=== PATIENT | male | born 1950 | race Caucasian/White ===

== ENCOUNTER 2018-02-21 12:17 | Inpatient (IN) | payer BC, MEDICARE ==
[~2018-02-21] VITALS: Ht 190.5 cm; Wt 102.1 kg
[~2018-02-21 12:17] MED LIST: AMLO10TA4 PO; ASPI325T8 PO; Butalb/Acetaminophen/Caffeine PO; CIPR500T94 PO; LABE100T28 PO; LEVO175T2 PO; TAMS0.4C97 PO; coumadin
[2018-02-21] MEDS ORDERED: IV NORMAL SALINE 1000ML BAG 1,000 ML IV SCH (12:46)
--- NOTE | 2018-02-21 12:53 | PHYS DOC ---
Past Medical History Past Medical History: Hypertension, Renal Failure, Other Additional Past Medical Histor: PE, BROKEN RIBS Past Surgical History: TURP, Other Additional Past Surgical Histo: Hernia repair, bladder stone removal Alcohol Use: Occasionally Drug Use: None Adult General Chief Complaint Chief Complaint: ABDOMINAL PAIN HPI HPI Patient is a 68 old male who presents to the emergency department for evaluation. He states that this morning he awakened, with some mild right flank pain, which has gradually been worsening, and radiating towards his right groin. The pain does feel somewhat similar to prior episodes of kidney stones that he has had. He has not had any hematuria. He does have a chronic history of an atonic bladder, which she self catheterizes, as he has been doing for years. He also reports that a few weeks ago he fell off of a horse, and broke some ribs on his right side, but this pain does not feel the same. He has not had any fevers or chills, chest, shortness of breath, nausea, vomiting. He denies any pleuritic pain. There are no alleviating or exacerbating factors to the patient's symptoms. Review of Systems Review of Systems Constitutional: Denies fever or chills [] Eyes: Denies change in visual acuity, redness, or eye pain [] HENT: Denies nasal congestion or sore throat [] Respiratory: Denies cough or shortness of breath [] Cardiovascular:The patient denies any shortness of breath, chest pain, palpitations, or orthopnea[] GI: Denies abdominal pain, nausea, vomiting, bloody stools or diarrhea [] : Denies dysuria or hematuria [] Musculoskeletal: Denies back pain or joint pain [] Integument: Denies rash or skin lesions [] Neurologic: Denies headache, focal weakness or sensory changes [] Endocrine: Denies polyuria or polydipsia [] All other systems were reviewed and found to be within normal limits, except as documented in this note. Current Medications Current Medications Current Medications Medications (Trade) Dose Ordered Sig/Katty Start Time Stop Time Status Last Admin Dose Admin Ceftriaxone Sodium (Rocephin) 1 gm 1X ONCE 02/21/18 14:15 02/21/18 14:16 DC 02/21/18 14:13 1 GM Ketorolac Tromethamine (Toradol 30mg Vial) 30 mg 1X ONCE 02/21/18 13:00 12/6/18 13:01 DC 02/21/18 13:21 30 MG Ondansetron HCl (Zofran) 4 mg 1X ONCE 02/21/18 13:30 02/21/18 13:31 DC 02/21/18 13:20 4 MG Sodium Chloride 1,000 ml @ 1,000 mls/hr Q1H 02/21/18 12:46 02/21/18 13:45 DC 02/21/18 13:20 1,000 MLS/HR Allergies Allergies Allergies Coded Allergies Type Severity Reaction Last Updated Verified I S O L A T I O N *CONTACT* Allergy Unknown 07/19/15 Yes No Known Medication Allergies Allergy Unknown 07/19/15 Yes Physical Exam Physical Exam PHYSICAL EXAM: CONSTITUTIONAL: Well developed, well nourished HEAD: normocephalic, atraumatic EENT: PERRL, EOMI. Conjunctivae normal color, sclerae non-icteric; moist mucous membranes. NECK: Supple, non-tender; no meningismus. LUNGS: Lungs CTA, breathing even and unlabored. Normal air movement. HEART: Regular rate and rhythm, no murmur CHEST: No deformity; non-tender ABDOMEN: The abdomen is soft, and non-tender, no masses or bruits. There is no reproducible tenderness to palpation. The right upper quadrant is nontender. EXTREM: Normal ROM; no deformity, no calf tenderness. Normal pulses palpable in all extremities. There is no pedal edema. SKIN: No rash; no diaphoresis NEURO: Alert; normal speech and cognition; CN's grossly intact; strength grossly intact without focal deficit. BACK: No reproducible CVA TTP.There is no bony tenderness to palpation of the thoracic or lumbar spine. Current Patient Data Vital Signs Vital Signs Date Time Temp Pulse Resp B/P (MAP) Pulse Ox O2 Delivery O2 Flow Rate FiO2 02/21/18 14:15 57 18 150/80 (103) 94 Room Air 02/21/18 12:33 97.6 97.6 Lab Values Laboratory Tests Test 02/21/18 12:45 02/21/18 13:15 Urine Collection Type Unknown Urine Color Yellow Urine Clarity Cloudy Urine pH 7.5 Urine Specific [place] 1.015 Urine Protein 100 mg/dL (NEG-TRACE) Urine Glucose (UA) Negative mg/dL (NEG) Urine Ketones (Stick) Negative mg/dL (NEG) Urine Blood Large (NEG) Urine Nitrite Positive (NEG) Urine Bilirubin Negative (NEG) Urine Urobilinogen Dipstick 0.2 mg/dL (0.2 mg/dL) Urine Leukocyte Esterase Large (NEG) Urine RBC >40 /HPF (0-2) Urine WBC Tntc /HPF (0-4) Urine Bacteria Many /HPF (0-FEW) White Blood Count 13.4 x10^3/uL (4.0-11.0) H Red Blood Count 5.73 x10^6/uL (4.30-5.70) H Hemoglobin 17.7 g/dL (13.0-17.5) H Hematocrit 51.0 % (39.0-53.0) Mean Corpuscular Volume 89 fL (79-100) Mean Corpuscular Hemoglobin 31 pg (25-35) Mean Corpuscular Hemoglobin Concent 35 g/dL (31-37) Red Cell Distribution Width 13.4 % (11.5-14.5) Platelet Count 171 x10^3/uL (140-400) Neutrophils (%) (Auto) 87 % (31-73) H Lymphocytes (%) (Auto) 8 % (24-48) L Monocytes (%) (Auto) 5 % (0-9) Eosinophils (%) (Auto) 0 % (0-3) Basophils (%) (Auto) 0 % (0-3) Neutrophils # (Auto) 11.6 x10^3uL (1.8-7.7) H Lymphocytes # (Auto) 1.0 x10^3/uL (1.0-4.8) Monocytes # (Auto) 0.7 x10^3/uL (0.0-1.1) Eosinophils # (Auto) 0.0 x10^3/uL (0.0-0.7) Basophils # (Auto) 0.1 x10^3/uL (0.0-0.2) Segmented Neutrophils % 85 % (35-66) H Band Neutrophils % 3 % (0-9) Lymphocytes % 8 % (24-48) L Monocytes % 4 % (0-10) Platelet Estimate Adequate (ADEQUATE) Sodium Level 142 mmol/L (136-145) Potassium Level 4.8 mmol/L (3.5-5.1) Chloride Level 107 mmol/L (98-107) Carbon Dioxide Level 22 mmol/L (21-32) Anion Gap 13 (6-14) Blood Urea Nitrogen 31 mg/dL (8-26) H Creatinine 2.1 mg/dL (0.7-1.3) H Estimated GFR (Cockcroft-Gault) 31.8 BUN/Creatinine Ratio 15 (6-20) Glucose Level 122 mg/dL (70-99) H Calcium Level 10.9 mg/dL (8.5-10.1) H Total Bilirubin 0.7 mg/dL (0.2-1.0) Aspartate Amino Transferase (AST) 17 U/L (15-37) Alanine Aminotransferase (ALT) 27 U/L (16-63) Alkaline Phosphatase 109 U/L (46-116) Creatine Kinase 103 U/L (39-308) Creatine Kinase MB (Mass) 2.7 ng/mL (0.0-3.6) Creatine Kinase MB Relative Index 2.6 % (0-4) Troponin I Quantitative < 0.017 ng/mL (0.000-0.055) Total Protein 7.2 g/dL (6.4-8.2) Albumin 3.6 g/dL (3.4-5.0) Albumin/Globulin Ratio 1.0 (1.0-1.7) Lipase 164 U/L (73-393) Laboratory Tests 02/21/18 13:15 Laboratory Tests 02/21/18 13:15 EKG EKG [Normal sinus rhythm at a rate of 57 beats for minute, normal axis, normal intervals, nonspecific ST/T changes are present] Radiology/Procedures Radiology/Procedures [PROCEDURE: CT ABDOMEN PELVIS WO CONTRAST CT abdomen pelvis without contrast 02/21/2018 CLINICAL INDICATION: Right flank pain history of broken ribs. COMPARISON: CT abdomen pelvis 07/16/2015. TECHNIQUE: Multiple CT images of the abdomen and pelvis were obtained without contrast. *One or more of the following individualized dose reduction techniques were utilized for this examination: 1. Automated exposure control. 2. Adjustment of the mA and/or kV according to patient size. 3. Use of iterative reconstruction technique. FINDINGS: Heart size is normal. Mild bibasilar atelectasis or scarring. Evaluation of the solid abdominal pelvic viscera, lymphadenopathy, and vasculature is limited in the absence of intravenous contrast. Stable hepatic hypodensities which are too small to characterize in the dome series 2/image 29 and segment 6 image 69, though stability suggest benign etiology. Unenhanced contours of the gallbladder, spleen, adrenal glands and pancreas are grossly unremarkable. Obstructive 6 mm calculus in the proximal right ureter with moderate upstream hydroureteronephrosis. Asymmetric perinephric stranding on the right. Clustered nonobstructive calculi in the inferior pole the right kidney, largest measuring 5 mm. Moderate left renal atrophy. There is a 10 mm calculus in the inferior pole the left kidney. No left hydronephrosis. Abdominal aorta normal in caliber. Small and large bowel loops are normal in caliber without obstruction. Appendix is normal in appearance. No abdominal free fluid. No pneumoperitoneum. Moderate prostate enlargement indenting the base of the urinary bladder. There are 3 urinary bladder calculi, largest measuring 2.8 cm there is moderate circumferential urinary bladder wall thickening. There are no destructive osseous lesions. Postsurgical changes of a left inguinal repair with hernia plug. IMPRESSION: 1. 6 mm obstructive proximal right ureteral calculus with moderate upstream hydroureteronephrosis. 2. Mild right perinephric stranding, likely reactive to the stone, though ascending urinary tract infection is not excluded. 3. Additional bilateral nonobstructive nephrolithiasis. 4. Large urinary bladder calculi. 5. Moderate prostate enlargement. Correlation with PSA is recommended. 6. Moderate circumferential urinary bladder wall thickening, likely due to chronic partial outflow compromise from prostate enlargement.] Course & Med Decision Making Course & Med Decision Making Pertinent Labs and Imaging studies reviewed. (See chart for details) [3:30 PM: The patient's condition remains stable. I spoke with the hospitalist , who accepted the patient to the hospital for further evaluation and treatment. I also spoke with urology.] Dragon Disclaimer Dragon Disclaimer This electronic medical record was generated, in whole or in part, using a voice recognition dictation system. Departure Departure Impression: Primary Impression: Kidney stone Additional Impressions: UTI (urinary tract infection) Pyelonephritis Disposition: ADMITTED INPATIENT Condition: STABLE Referrals: UNKNOWN PCP NAME (PCP) Problem Qualifiers MAGGY BELLO MD Feb 21, 2018 12:53
[2018-02-21] MEDS ORDERED: KETOROLAC 30 MG/ML VIAL. IV ONE (13:00)
[2018-02-21 13:07] LABS: BILIRUBIN,URINE NEGATIVE (NEG); CLARITY,URINE CLOUDY; COLOR,URINE YELLOW; NITRITE,URINE POSITIVE (NEG); PH,URINE 7.5; PROTEIN,URINE 100 mg/dL (NEG-TRACE); UROBILINOGEN,URINE 0.2 mg/dL (0.2 mg/dL)
[2018-02-21 13:16] LABS: BACTERIA,URINE MANY /HPF (0-FEW); RBC,URINE >40 /HPF (0-2); WBC,URINE TNTC /HPF (0-4)
--- NOTE | 2018-02-21 13:18 | EKG ---
[facility] [address] [place] [address] Test Date: 2018-02-21 Test Time: 13:06:39 Pat Name: LEONIE MACDONALD Department: Room: Gender: M [employer] Technician: : 1950 Requested By: MAGGY BELLO Order Number: [id number] Reading MD: Measurements Intervals [place] Rate: 56 P: 38 NC: 136 QRS: 14 QRSD: 88 T: 60 QT: 400 QTc: 392 Interpretive Statements SINUS RHYTHM T ABNORMALITY IN ANTEROLATERAL LEADS ABNORMAL ECG No previous ECG available for comparison
[2018-02-21 13:21] LABS: BASO # 0.1 x10^3/uL (0.0-0.2); BASO % 0 % (0-3); EOS % 0 % (0-3); HEMOGLOBIN 17.7 g/dL (13.0-17.5); LYMPH % 8 % (24-48); MEAN CORPUSCULAR HEMOGLOBIN 31 pg (25-35); MEAN CORPUSCULAR HGB CONC 35 g/dL (31-37); MEAN CORPUSCULAR VOLUME 89 fL (79-100); MONO # 0.7 x10^3/uL (0.0-1.1); MONO % 5 % (0-9); NEUT # 11.6 x10^3uL (1.8-7.7); NEUT % 87 % (31-73); PLATELET COUNT 171 x10^3/uL (140-400); RED BLOOD COUNT 5.73 x10^6/uL (4.30-5.70); RED CELL DISTRIBUTION WIDTH 13.4 % (11.5-14.5); WHITE BLOOD COUNT 13.4 x10^3/uL (4.0-11.0)
[2018-02-21] MEDS ORDERED: ONDANSETRON PF 4 MG/2 ML VIAL. IV ONE ×2 (13:30→15:45)
[2018-02-21 13:32] LABS: CALCIUM 10.9 mg/dL (8.5-10.1); CREATININE 2.1 mg/dL (0.7-1.3); GFR 31.8; POTASSIUM 4.8 mmol/L (3.5-5.1)
[2018-02-21 13:38] LABS: ALBUMIN 3.6 g/dL (3.4-5.0); TOTAL BILIRUBIN 0.7 mg/dL (0.2-1.0); TOTAL PROTEIN 7.2 g/dL (6.4-8.2)
[2018-02-21] MEDS ORDERED: cefTRIAXone IV Push 1 GM VIAL. IVP ONE (14:15)
--- NOTE | 2018-02-21 14:18 | RAD ---
CT abdomen pelvis without contrast 02/21/2018 CLINICAL INDICATION: Right flank pain history of broken ribs. COMPARISON: CT abdomen pelvis 07/16/2015. TECHNIQUE: Multiple CT images of the abdomen and pelvis were obtained without contrast. *One or more of the following individualized dose reduction techniques were utilized for this examination: 1. Automated exposure control. 2. Adjustment of the mA and/or kV according to patient size. 3. Use of iterative reconstruction technique. FINDINGS: Heart size is normal. Mild bibasilar atelectasis or scarring. Evaluation of the solid abdominal pelvic viscera, lymphadenopathy, and vasculature is limited in the absence of intravenous contrast. Stable hepatic hypodensities which are too small to characterize in the dome series 2/image 29 and segment 6 image 69, though stability suggest benign etiology. Unenhanced contours of the gallbladder, spleen, adrenal glands and pancreas are grossly unremarkable. Obstructive 6 mm calculus in the proximal right ureter with moderate upstream hydroureteronephrosis. Asymmetric perinephric stranding on the right. Clustered nonobstructive calculi in the inferior pole the right kidney, largest measuring 5 mm. Moderate left renal atrophy. There is a 10 mm calculus in the inferior pole the left kidney. No left hydronephrosis. Abdominal aorta normal in caliber. Small and large bowel loops are normal in caliber without obstruction. Appendix is normal in appearance. No abdominal free fluid. No pneumoperitoneum. Moderate prostate enlargement indenting the base of the urinary bladder. There are 3 urinary bladder calculi, largest measuring 2.8 cm there is moderate circumferential urinary bladder wall thickening. There are no destructive osseous lesions. Postsurgical changes of a left inguinal repair with hernia plug. IMPRESSION: 1. 6 mm obstructive proximal right ureteral calculus with moderate upstream hydroureteronephrosis. 2. Mild right perinephric stranding, likely reactive to the stone, though ascending urinary tract infection is not excluded. 3. Additional bilateral nonobstructive nephrolithiasis. 4. Large urinary bladder calculi. 5. Moderate prostate enlargement. Correlation with PSA is recommended. 6. Moderate circumferential urinary bladder wall thickening, likely due to chronic partial outflow compromise from prostate enlargement. Electronically signed by: Bret Mcneil MD (02/21/2018 2:15 PM) [id number]
[2018-02-21 14:20] LABS: % BANDS 3 % (0-9); % LYMPHS 8 % (24-48); % MONOS 4 % (0-10); % SEGS 85 % (35-66)
[2018-02-21 14:21] LABS: PLT ESTIMATE ADEQUATE (ADEQUATE)
[2018-02-21] MEDS ORDERED: IV RINGERS,LACTATED 1000ML 1,000 ML IV SCH (15:43)
[2018-02-21] MEDS ORDERED: fentaNYL PF VIAL 100 MCG/2 ML VIAL IV PRN (15:45)
[2018-02-21] MEDS ORDERED: HYDROmorphone 2 MG/ML VIAL IV PRN (15:45)
[2018-02-21] MEDS ORDERED: LIDOCAINE 1% PF 2 ML VIAL. ID PRN (15:45)
[2018-02-21] MEDS ORDERED: MORPHINE SULFATE 2 MG/ML VIAL. IV PRN (15:45)
[2018-02-21] MEDS ORDERED: PROCHLORPERAZINE 10 MG/2 ML VIAL. IV PRN (15:45)
[2018-02-21] MEDS ORDERED: HYDROmorphone 2 MG/ML VIAL IV ONE (15:45)
[2018-02-21] MEDS ORDERED: ONDANSETRON PF 4 MG/2 ML VIAL. IV PRN (15:45)
--- NOTE | 2018-02-21 15:52 | PDOC2 ---
UROLOGY CONSULT Date of Consult Date of Consult DATE: 02/21/18 TIME: 15:37 Reason for Consult Reason for Consult: right ureter stone, UTI Referring Physician Referring Physician: Dr. Mccabe Source Source: Chart review, Patient History of Present Illness Reason for Visit: 68 yo male with 1 day of right flank pain radiating to RLQ. Came to ER and CT obtained. I reviewed CT images, revealing 6 mm proximal right ureter stone, as well as left renal atrophy with 1 cm left lower pole stone, 6 mm right lower pole stone. Also note of two large bladder stones (3.5 cm and 2.2 cm diameter). Has chronic urinary retention, managed bladder with intermittent catheterization. UA this admission consistent with UTI. No fevers, chills. Past Medical History Cardiovascular: HTN Pulmonary: Other CENTRAL NERVOUS SYSTEM: Other GI: GERD Heme/Onc: No pertinent hx Hepatobiliary: No pertinent hx Psych: No pertinent hx Musculoskeletal: Osteoarthritis Rheumatologic: No pertinent hx Infectious disease: No pertinent hx Renal/: Benign prostatic enlarg., Other Endocrine: No pertinent hx Past Surgical History Past Surgical History: Other Family History Family History: No Significant Social History ALCOHOL: occassional Drugs: None Lives: with Family Domestic Violence: Neg Current Medications Current Medications Current Medications Ceftriaxone Sodium 50 ml @ 100 mls/hr 1X ONCE IV ; Start 02/21/18 at 14:00; Stop 02/21/18 at 14:29; Status UNV Ceftriaxone Sodium (Rocephin) 1 gm 1X ONCE IVP Last administered on 02/21/18at 14:13; Start 02/21/18 at 14:15; Stop 02/21/18 at 14:16; Status DC Ketorolac Tromethamine (Toradol 30mg Vial) 30 mg 1X ONCE IV Last administered on 02/21/18at 13:21; Start 02/21/18 at 13:00; Stop 02/21/18 at 13:01; Status DC Ondansetron HCl (Zofran) 4 mg 1X ONCE IV Last administered on 02/21/18at 13:20 ; Start 02/21/18 at 13:30; Stop 02/21/18 at 13:31; Status DC Sodium Chloride 1,000 ml @ 1,000 mls/hr Q1H IV Last administered on 02/21/18at 13:20; Start 02/21/18 at 12:46; Stop 02/21/18 at 13:45; Status DC Allergies Allergies: Coded Allergies: I S O L A T I O N *CONTACT* (Verified Allergy, Unknown, 07/19/15) mrsa + No Known Medication Allergies (Verified Allergy, Unknown, 07/19/15) ROS Review Of Systems: CONSTITUTIONAL: No fever or chills EYES: No recent changes SKIN: No rash or itching CARDIOVASCULAR: No chest pain, syncope, palpitations, or edema RESPIRATORY: No SOB or cough GASTROINTESTINAL: No nausea, vomiting or abdominal pain NEUROLOGICAL: No headaches or weakness ENDOCRINE: No cold or heat intolerance GENITOURINARY: No urgency or frequency of urination MUSCULOSKELETAL: No back pain or joint pain LYMPHATICS: No enlarged lymph nodes PSYCHIATRIC: No anxiety or depression Physical Exam Physical Exam: General: Pleasant, no acute distress, well groomed Eyes: conjunctiva anicteric, eyes full range of motion ENT: moist oral mucosa, normal dentition Neck: Trachea midline, no masses Respiratory: unlabored breathing, not using accessory muscles, no crackles or wheezes Cardiovascular: Regular rate and rhythm, no peripheral edema Abdomen: Right side tenderness, nondistended, no hepatosplenomegaly, no masses. Mild right CVA tenderness Skin: no rashes or skin lesions on visualized skin Psych: normal mood, affect. Alert and oriented x 3. Vitals VITALS Vital Signs Date Time Temp Pulse Resp B/P (MAP) Pulse Ox O2 Delivery O2 Flow Rate FiO2 02/21/18 14:15 57 18 150/80 (103) 94 Room Air 02/21/18 12:33 97.6 97.6 Labs Labs Laboratory Tests Test 02/21/18 12:45 02/21/18 13:15 Urine Collection Type Unknown Urine Color Yellow Urine Clarity Cloudy Urine pH 7.5 Urine Specific [place] 1.015 Urine Protein 100 mg/dL (NEG-TRACE) Urine Glucose (UA) Negative mg/dL (NEG) Urine Ketones (Stick) Negative mg/dL (NEG) Urine Blood Large (NEG) Urine Nitrite Positive (NEG) Urine Bilirubin Negative (NEG) Urine Urobilinogen Dipstick 0.2 mg/dL (0.2 mg/dL) Urine Leukocyte Esterase Large (NEG) Urine RBC >40 /HPF (0-2) Urine WBC Tntc /HPF (0-4) Urine Bacteria Many /HPF (0-FEW) White Blood Count 13.4 x10^3/uL (4.0-11.0) Red Blood Count 5.73 x10^6/uL (4.30-5.70) Hemoglobin 17.7 g/dL (13.0-17.5) Hematocrit 51.0 % (39.0-53.0) Mean Corpuscular Volume 89 fL (79-100) Mean Corpuscular Hemoglobin 31 pg (25-35) Mean Corpuscular Hemoglobin Concent 35 g/dL (31-37) Red Cell Distribution Width 13.4 % (11.5-14.5) Platelet Count 171 x10^3/uL (140-400) Neutrophils (%) (Auto) 87 % (31-73) Lymphocytes (%) (Auto) 8 % (24-48) Monocytes (%) (Auto) 5 % (0-9) Eosinophils (%) (Auto) 0 % (0-3) Basophils (%) (Auto) 0 % (0-3) Neutrophils # (Auto) 11.6 x10^3uL (1.8-7.7) Lymphocytes # (Auto) 1.0 x10^3/uL (1.0-4.8) Monocytes # (Auto) 0.7 x10^3/uL (0.0-1.1) Eosinophils # (Auto) 0.0 x10^3/uL (0.0-0.7) Basophils # (Auto) 0.1 x10^3/uL (0.0-0.2) Segmented Neutrophils % 85 % (35-66) Band Neutrophils % 3 % (0-9) Lymphocytes % 8 % (24-48) Monocytes % 4 % (0-10) Platelet Estimate Adequate (ADEQUATE) Sodium Level 142 mmol/L (136-145) Potassium Level 4.8 mmol/L (3.5-5.1) Chloride Level 107 mmol/L (98-107) Carbon Dioxide Level 22 mmol/L (21-32) Anion Gap 13 (6-14) Blood Urea Nitrogen 31 mg/dL (8-26) Creatinine 2.1 mg/dL (0.7-1.3) Estimated GFR (Cockcroft-Gault) 31.8 BUN/Creatinine Ratio 15 (6-20) Glucose Level 122 mg/dL (70-99) Calcium Level 10.9 mg/dL (8.5-10.1) Total Bilirubin 0.7 mg/dL (0.2-1.0) Aspartate Amino Transf (AST/SGOT) 17 U/L (15-37) Alanine Aminotransferase (ALT/SGPT) 27 U/L (16-63) Alkaline Phosphatase 109 U/L (46-116) Creatine Kinase 103 U/L (39-308) Creatine Kinase MB (Mass) 2.7 ng/mL (0.0-3.6) Creatine Kinase MB Relative Index 2.6 % (0-4) Troponin I Quantitative < 0.017 ng/mL (0.000-0.055) Total Protein 7.2 g/dL (6.4-8.2) Albumin 3.6 g/dL (3.4-5.0) Albumin/Globulin Ratio 1.0 (1.0-1.7) Lipase 164 U/L (73-393) Laboratory Tests Test 02/21/18 12:45 02/21/18 13:15 Urine Collection Type Unknown Urine Color Yellow Urine Clarity Cloudy Urine pH 7.5 Urine Specific [place] 1.015 Urine Protein 100 mg/dL (NEG-TRACE) Urine Glucose (UA) Negative mg/dL (NEG) Urine Ketones (Stick) Negative mg/dL (NEG) Urine Blood Large (NEG) Urine Nitrite Positive (NEG) Urine Bilirubin Negative (NEG) Urine Urobilinogen Dipstick 0.2 mg/dL (0.2 mg/dL) Urine Leukocyte Esterase Large (NEG) Urine RBC >40 /HPF (0-2) Urine WBC Tntc /HPF (0-4) Urine Bacteria Many /HPF (0-FEW) White Blood Count 13.4 x10^3/uL (4.0-11.0) Red Blood Count 5.73 x10^6/uL (4.30-5.70) Hemoglobin 17.7 g/dL (13.0-17.5) Hematocrit 51.0 % (39.0-53.0) Mean Corpuscular Volume 89 fL (79-100) Mean Corpuscular Hemoglobin 31 pg (25-35) Mean Corpuscular Hemoglobin Concent 35 g/dL (31-37) Red Cell Distribution Width 13.4 % (11.5-14.5) Platelet Count 171 x10^3/uL (140-400) Neutrophils (%) (Auto) 87 % (31-73) Lymphocytes (%) (Auto) 8 % (24-48) Monocytes (%) (Auto) 5 % (0-9) Eosinophils (%) (Auto) 0 % (0-3) Basophils (%) (Auto) 0 % (0-3) Neutrophils # (Auto) 11.6 x10^3uL (1.8-7.7) Lymphocytes # (Auto) 1.0 x10^3/uL (1.0-4.8) Monocytes # (Auto) 0.7 x10^3/uL (0.0-1.1) Eosinophils # (Auto) 0.0 x10^3/uL (0.0-0.7) Basophils # (Auto) 0.1 x10^3/uL (0.0-0.2) Segmented Neutrophils % 85 % (35-66) Band Neutrophils % 3 % (0-9) Lymphocytes % 8 % (24-48) Monocytes % 4 % (0-10) Platelet Estimate Adequate (ADEQUATE) Sodium Level 142 mmol/L (136-145) Potassium Level 4.8 mmol/L (3.5-5.1) Chloride Level 107 mmol/L (98-107) Carbon Dioxide Level 22 mmol/L (21-32) Anion Gap 13 (6-14) Blood Urea Nitrogen 31 mg/dL (8-26) Creatinine 2.1 mg/dL (0.7-1.3) Estimated GFR (Cockcroft-Gault) 31.8 BUN/Creatinine Ratio 15 (6-20) Glucose Level 122 mg/dL (70-99) Calcium Level 10.9 mg/dL (8.5-10.1) Total Bilirubin 0.7 mg/dL (0.2-1.0) Aspartate Amino Transf (AST/SGOT) 17 U/L (15-37) Alanine Aminotransferase (ALT/SGPT) 27 U/L (16-63) Alkaline Phosphatase 109 U/L (46-116) Creatine Kinase 103 U/L (39-308) Creatine Kinase MB (Mass) 2.7 ng/mL (0.0-3.6) Creatine Kinase MB Relative Index 2.6 % (0-4) Troponin I Quantitative < 0.017 ng/mL (0.000-0.055) Total Protein 7.2 g/dL (6.4-8.2) Albumin 3.6 g/dL (3.4-5.0) Albumin/Globulin Ratio 1.0 (1.0-1.7) Lipase 164 U/L (73-393) Assessment/Plan Assessment/Plan Right ureteral stone: will plan for right ureteral stent today due to present of UTI and functionally solitary kidney (left renal atrophy). Risks, benefits of the procedure reviewed in detail. Will need delayed stone surgery (probably ureteroscopy) as outpatient, after infection treated. Bladder stones: plan for laser of bladder stones at time of stone surgery. Urinary retention: continue intermittent self-cath. Might be a candidate for prostate procedure at later date - will assess degree of prostate obstruction on cystoscopy today. UTI: per primary service, would give at least 7 days antibiotics due to likely renal infection. Increase to 14 days if he has significant rise in WBC or fever postop. KELSIE AUSTIN MD Feb 21, 2018 15:52
[2018-02-21] MEDS ORDERED: LIDOCAINE 2% JELLY 6ML IN APPLICATOR. ONE ×2 (16:02→17:43)
[2018-02-21] MEDS ORDERED: IOHEXOL 300 MG/ML 100ML VIAL. ONE ×2 (16:02→17:43)
--- NOTE | 2018-02-21 16:51 | PDOC1 ---
History and Physical Date of Admission Date of Admission DATE: 02/21/18 TIME: 16:50 Identification/Chief Complaint Chief Complaint SEEN IN ER presented to the emergency department for evaluation., states that this morning he awakened, with some mild right flank pain, which has gradually been worsening, and radiating towards his right groin. pain does feel somewhat similar to prior episodes of kidney stones that he has had. He has not had hematuria CT images, SHOW 6 mm proximal right ureter stone, as well as left renal atrophy with 1 cm left lower pole stone, 6 mm right lower pole stone. two large bladder stones (3.5 cm and 2.2 cm diameter). Has chronic urinary retention, with intermittent self catheterization. Past Medical History Past Medical History Past Medical History: Hypertension, Renal Failure, Other Additional Past Medical Histor: PE, BROKEN RIBS Past Surgical History: TURP, Other Additional Past Surgical Histo: Hernia repair, bladder stone removal Alcohol Use: Occasionally Drug Use: None family hx htn Cardiovascular: HTN Pulmonary: Other CENTRAL NERVOUS SYSTEM: Other GI: GERD Heme/Onc: No pertinent hx Hepatobiliary: No pertinent hx Psych: No pertinent hx Musculoskeletal: Osteoarthritis Rheumatologic: No pertinent hx Infectious disease: No pertinent hx Renal/: Benign prostatic enlarg., Other Endocrine: No pertinent hx Past Surgical History Past Surgical History: Other Family History Family History: No Significant, High Cholestrol Social History Smoke: <1 pack per day ALCOHOL: occassional Drugs: None Current Problem List Problem List Problems Medical Problems: (1) Kidney stone Status: Acute (2) Pyelonephritis Status: Acute (3) UTI (urinary tract infection) Status: Acute Current Medications Current Medications Current Medications Sodium Chloride 1,000 ml @ 1,000 mls/hr Q1H IV Last administered on 02/21/18at 13:20; Start 02/21/18 at 12:46; Stop 02/21/18 at 13:45; Status DC Ketorolac Tromethamine (Toradol 30mg Vial) 30 mg 1X ONCE IV Last administered on 02/21/18at 13:21; Start 02/21/18 at 13:00; Stop 02/21/18 at 13:01; Status DC Ondansetron HCl (Zofran) 4 mg 1X ONCE IV Last administered on 02/21/18at 13:20 ; Start 02/21/18 at 13:30; Stop 02/21/18 at 13:31; Status DC Ceftriaxone Sodium 50 ml @ 100 mls/hr 1X ONCE IV ; Start 02/21/18 at 14:00; Stop 02/21/18 at 14:29; Status UNV Ceftriaxone Sodium (Rocephin) 1 gm 1X ONCE IVP Last administered on 02/21/18at 14:13; Start 02/21/18 at 14:15; Stop 02/21/18 at 14:16; Status DC Hydromorphone HCl (Dilaudid) 1 mg 1X ONCE IV Last administered on 02/21/18at 15 :47; Start 02/21/18 at 15:45; Stop 02/21/18 at 15:46; Status DC Ondansetron HCl (Zofran) 4 mg 1X ONCE IV Last administered on 02/21/18at 15:46 ; Start 02/21/18 at 15:45; Stop 02/21/18 at 15:46; Status DC Ondansetron HCl (Zofran) 4 mg PRN Q6HRS PRN IV NAUSEA/VOMITING; Start 02/21/18 at 15:45; Stop 02/21/18 at 18:00 Fentanyl Citrate (Fentanyl 2ml Vial) 25 mcg PRN Q5MIN PRN IV MILD PAIN; Start 02/21/18 at 15:45; Stop 02/21/18 at 18:00 Fentanyl Citrate (Fentanyl 2ml Vial) 50 mcg PRN Q5MIN PRN IV MODERATE TO SEVERE PAIN; Start 02/21/18 at 15:45; Stop 02/21/18 at 20:00 Morphine Sulfate (Morphine Sulfate) 1 mg PRN Q10MIN PRN IV SEVERE PAIN; Start 02/21/18 at 15:45; Stop 02/21/18 at 20:00 Ringer's Solution 1,000 ml @ 30 mls/hr Q24H IV ; Start 02/21/18 at 15:43; Stop 02/22/18 at 03:42 Lidocaine HCl (Xylocaine-Mpf 1% 2ml Vial) 2 ml 1X PRN PRN ID IV START; Start 02/21/18 at 15:45; Stop 02/21/18 at 20:00 Hydromorphone HCl (Dilaudid) 0.5 mg PRN Q10MIN PRN IV SEV PAIN, Second choice; Start 02/21/18 at 15:45; Stop 02/21/18 at 18:00 Prochlorperazine Edisylate (Compazine) 5 mg PACU PRN PRN IV NAUSEA, MRX1; Start 02/21/18 at 15:45; Stop 02/21/18 at 18:00 Iohexol (Omnipaque 300 Mg/ml) 100 ml STK-MED ONCE .ROUTE ; Start 02/21/18 at 16: 02; Stop 02/21/18 at 16:03; Status DC Lidocaine HCl (Glydo (Lidocaine) Jelly) 6 josue STK-MED ONCE .ROUTE ; Start at 16:02; Stop 02/21/18 at 16:03; Status DC Active Scripts Active Flomax (Tamsulosin Hcl) 0.4 Mg Cap.er.24h 1 Cap PO DAILY Cipro (Ciprofloxacin Hcl) 500 Mg Tablet 500 Mg PO BID 5 Days Reported Aspirin 325 Mg Tablet 1 Tab PO PRN PRN Allergies Allergies: Coded Allergies: I S O L A T I O N *CONTACT* (Verified Allergy, Unknown, 07/19/15) mrsa + No Known Medication Allergies (Verified Allergy, Unknown, 07/19/15) ROS Review of System Review of Systems Review of Systems Constitutional: Denies fever or chills [] Eyes: Denies change in visual acuity, redness, or eye pain [] HENT: Denies nasal congestion or sore throat [] Respiratory: Denies cough or shortness of breath [] Cardiovascular:The patient denies any shortness of breath, chest pain, palpitations, or orthopnea[] GI: Denies abdominal pain, nausea, vomiting, bloody stools or diarrhea [] : Denies dysuria or hematuria [] Musculoskeletal: SOME back pain [] Integument: Denies rash or skin lesions [] Neurologic: Denies headache, focal weakness or sensory changes [] Endocrine: Denies polyuria or polydipsia [] 14 pt systems were reviewed and found to be within normal limits, except as documented General: YES: Chills Eyes: No Blurry vision, No Decreased vision, No Double vision, No Dry eyes, No Excessive tearing, No Eye Pain, No Itchy Eyes, No Loss of vision, No Photophobia , No Scotomata, No Uses contacts, No Uses glasses, No Other Hematological and Lymphatic: No: Bleeding Problems, Blood Clots, Blood Transfusions, Brusing, Night Sweats, Pallor, Swollen Lymph Nodes, Other ENDOCRINE: No: Breast Changes, Galactorrhea, Hair Pattern Changes, Hot Flashes , Malaise/lethargy, Mood Swings, Palpitations, Polydipsia/polyuria, Skin Changes , Temperature Intolerance, Unexpected Weight Changes, Other Respiratory: No: Cough, Hemoptysis, Orthopnea, Pleuritic Pain, Shortness of breath, SOB with excertion, Sputum Changes, Stridor, Tachypnea, Wheezing, Other Cardiovascular: No Chest Pain, No Palpitations, No Orthopnea, No Paroxysmal Noc. Dyspnea, No Edema, No Lt Headedness, No Other Gastrointestinal: Yes Nausea, Yes Vomiting Genitourinary: YES Pain Physical Exam Physical Exam Physical Exam Physical Exam PHYSICAL EXAM: CONSTITUTIONAL: Well developed, well nourished HEAD: normocephalic, atraumatic EENT: PERRL, EOMI. Conjunctivae normal color, sclerae non-icteric; moist mucous membranes. NECK: Supple, non-tender; no meningismus. LUNGS: Lungs CTA, breathing even and unlabored. Normal air movement. HEART: Regular rate and rhythm, no murmur CHEST: No deformity; non-tender ABDOMEN: The abdomen is soft, and non-tender, no masses or bruits. There is no reproducible tenderness to palpation. The right upper quadrant is nontender. EXTREM: Normal ROM; no deformity, no calf tenderness. Normal pulses palpable in all extremities. There is no pedal edema. SKIN: No rash; no diaphoresis NEURO: Alert; normal speech and cognition; CN's grossly intact; strength grossly intact without focal deficit. BACK: No reproducible CVA TTP.There is no bony tenderness to palpation of the thoracic or lumbar spine. General: Alert, Oriented X3, Cooperative, mild distress HEENT: Atraumatic Lungs: Clear to auscultation, Normal air movement Heart: S1S2, RRR, no thrills Abdomen: Normal bowel sounds, Soft Rectal Exam: not examined PELVIC: Examination not indicated Extremities: No clubbing, No cyanosis Neuro: Normal speech, Cranial nerves 3-12 NL Psych/Mental Status: Mental status NL, Mood NL Vitals Vitals Vital Signs Date Time Temp Pulse Resp B/P (MAP) Pulse Ox O2 Delivery O2 Flow Rate FiO2 12/6/18 15:47 16 96 02/21/18 15:30 58 117/58 (77) Room Air 02/21/18 12:33 97.6 97.6 Labs Labs Laboratory Tests Test 02/21/18 12:45 02/21/18 13:15 Urine Collection Type Unknown Urine Color Yellow Urine Clarity Cloudy Urine pH 7.5 Urine Specific [place] 1.015 Urine Protein 100 mg/dL (NEG-TRACE) Urine Glucose (UA) Negative mg/dL (NEG) Urine Ketones (Stick) Negative mg/dL (NEG) Urine Blood Large (NEG) Urine Nitrite Positive (NEG) Urine Bilirubin Negative (NEG) Urine Urobilinogen Dipstick 0.2 mg/dL (0.2 mg/dL) Urine Leukocyte Esterase Large (NEG) Urine RBC >40 /HPF (0-2) Urine WBC Tntc /HPF (0-4) Urine Bacteria Many /HPF (0-FEW) White Blood Count 13.4 x10^3/uL (4.0-11.0) Red Blood Count 5.73 x10^6/uL (4.30-5.70) Hemoglobin 17.7 g/dL (13.0-17.5) Hematocrit 51.0 % (39.0-53.0) Mean Corpuscular Volume 89 fL (79-100) Mean Corpuscular Hemoglobin 31 pg (25-35) Mean Corpuscular Hemoglobin Concent 35 g/dL (31-37) Red Cell Distribution Width 13.4 % (11.5-14.5) Platelet Count 171 x10^3/uL (140-400) Neutrophils (%) (Auto) 87 % (31-73) Lymphocytes (%) (Auto) 8 % (24-48) Monocytes (%) (Auto) 5 % (0-9) Eosinophils (%) (Auto) 0 % (0-3) Basophils (%) (Auto) 0 % (0-3) Neutrophils # (Auto) 11.6 x10^3uL (1.8-7.7) Lymphocytes # (Auto) 1.0 x10^3/uL (1.0-4.8) Monocytes # (Auto) 0.7 x10^3/uL (0.0-1.1) Eosinophils # (Auto) 0.0 x10^3/uL (0.0-0.7) Basophils # (Auto) 0.1 x10^3/uL (0.0-0.2) Segmented Neutrophils % 85 % (35-66) Band Neutrophils % 3 % (0-9) Lymphocytes % 8 % (24-48) Monocytes % 4 % (0-10) Platelet Estimate Adequate (ADEQUATE) Sodium Level 142 mmol/L (136-145) Potassium Level 4.8 mmol/L (3.5-5.1) Chloride Level 107 mmol/L (98-107) Carbon Dioxide Level 22 mmol/L (21-32) Anion Gap 13 (6-14) Blood Urea Nitrogen 31 mg/dL (8-26) Creatinine 2.1 mg/dL (0.7-1.3) Estimated GFR (Cockcroft-Gault) 31.8 BUN/Creatinine Ratio 15 (6-20) Glucose Level 122 mg/dL (70-99) Calcium Level 10.9 mg/dL (8.5-10.1) Total Bilirubin 0.7 mg/dL (0.2-1.0) Aspartate Amino Transf (AST/SGOT) 17 U/L (15-37) Alanine Aminotransferase (ALT/SGPT) 27 U/L (16-63) Alkaline Phosphatase 109 U/L (46-116) Creatine Kinase 103 U/L (39-308) Creatine Kinase MB (Mass) 2.7 ng/mL (0.0-3.6) Creatine Kinase MB Relative Index 2.6 % (0-4) Troponin I Quantitative < 0.017 ng/mL (0.000-0.055) Total Protein 7.2 g/dL (6.4-8.2) Albumin 3.6 g/dL (3.4-5.0) Albumin/Globulin Ratio 1.0 (1.0-1.7) Lipase 164 U/L (73-393) Laboratory Tests Test 02/21/18 12:45 02/21/18 13:15 Urine Collection Type Unknown Urine Color Yellow Urine Clarity Cloudy Urine pH 7.5 Urine Specific [place] 1.015 Urine Protein 100 mg/dL (NEG-TRACE) Urine Glucose (UA) Negative mg/dL (NEG) Urine Ketones (Stick) Negative mg/dL (NEG) Urine Blood Large (NEG) Urine Nitrite Positive (NEG) Urine Bilirubin Negative (NEG) Urine Urobilinogen Dipstick 0.2 mg/dL (0.2 mg/dL) Urine Leukocyte Esterase Large (NEG) Urine RBC >40 /HPF (0-2) Urine WBC Tntc /HPF (0-4) Urine Bacteria Many /HPF (0-FEW) White Blood Count 13.4 x10^3/uL (4.0-11.0) Red Blood Count 5.73 x10^6/uL (4.30-5.70) Hemoglobin 17.7 g/dL (13.0-17.5) Hematocrit 51.0 % (39.0-53.0) Mean Corpuscular Volume 89 fL (79-100) Mean Corpuscular Hemoglobin 31 pg (25-35) Mean Corpuscular Hemoglobin Concent 35 g/dL (31-37) Red Cell Distribution Width 13.4 % (11.5-14.5) Platelet Count 171 x10^3/uL (140-400) Neutrophils (%) (Auto) 87 % (31-73) Lymphocytes (%) (Auto) 8 % (24-48) Monocytes (%) (Auto) 5 % (0-9) Eosinophils (%) (Auto) 0 % (0-3) Basophils (%) (Auto) 0 % (0-3) Neutrophils # (Auto) 11.6 x10^3uL (1.8-7.7) Lymphocytes # (Auto) 1.0 x10^3/uL (1.0-4.8) Monocytes # (Auto) 0.7 x10^3/uL (0.0-1.1) Eosinophils # (Auto) 0.0 x10^3/uL (0.0-0.7) Basophils # (Auto) 0.1 x10^3/uL (0.0-0.2) Segmented Neutrophils % 85 % (35-66) Band Neutrophils % 3 % (0-9) Lymphocytes % 8 % (24-48) Monocytes % 4 % (0-10) Platelet Estimate Adequate (ADEQUATE) Sodium Level 142 mmol/L (136-145) Potassium Level 4.8 mmol/L (3.5-5.1) Chloride Level 107 mmol/L (98-107) Carbon Dioxide Level 22 mmol/L (21-32) Anion Gap 13 (6-14) Blood Urea Nitrogen 31 mg/dL (8-26) Creatinine 2.1 mg/dL (0.7-1.3) Estimated GFR (Cockcroft-Gault) 31.8 BUN/Creatinine Ratio 15 (6-20) Glucose Level 122 mg/dL (70-99) Calcium Level 10.9 mg/dL (8.5-10.1) Total Bilirubin 0.7 mg/dL (0.2-1.0) Aspartate Amino Transf (AST/SGOT) 17 U/L (15-37) Alanine Aminotransferase (ALT/SGPT) 27 U/L (16-63) Alkaline Phosphatase 109 U/L (46-116) Creatine Kinase 103 U/L (39-308) Creatine Kinase MB (Mass) 2.7 ng/mL (0.0-3.6) Creatine Kinase MB Relative Index 2.6 % (0-4) Troponin I Quantitative < 0.017 ng/mL (0.000-0.055) Total Protein 7.2 g/dL (6.4-8.2) Albumin 3.6 g/dL (3.4-5.0) Albumin/Globulin Ratio 1.0 (1.0-1.7) Lipase 164 U/L (73-393) Images Images CT abdomen pelvis without contrast 02/21/2018 CLINICAL INDICATION: Right flank pain history of broken ribs. COMPARISON: CT abdomen pelvis 07/16/2015. TECHNIQUE: Multiple CT images of the abdomen and pelvis were obtained without contrast. *One or more of the following individualized dose reduction techniques were utilized for this examination: 1. Automated exposure control. 2. Adjustment of the mA and/or kV according to patient size. 3. Use of iterative reconstruction technique. FINDINGS: Heart size is normal. Mild bibasilar atelectasis or scarring. Evaluation of the solid abdominal pelvic viscera, lymphadenopathy, and vasculature is limited in the absence of intravenous contrast. Stable hepatic hypodensities which are too small to characterize in the dome series 2/image 29 and segment 6 image 69, though stability suggest benign etiology. Unenhanced contours of the gallbladder, spleen, adrenal glands and pancreas are grossly unremarkable. Obstructive 6 mm calculus in the proximal right ureter with moderate upstream hydroureteronephrosis. Asymmetric perinephric stranding on the right. Clustered nonobstructive calculi in the inferior pole the right kidney, largest measuring 5 mm. Moderate left renal atrophy. There is a 10 mm calculus in the inferior pole the left kidney. No left hydronephrosis. Abdominal aorta normal in caliber. Small and large bowel loops are normal in caliber without obstruction. Appendix is normal in appearance. No abdominal free fluid. No pneumoperitoneum. Moderate prostate enlargement indenting the base of the urinary bladder. There are 3 urinary bladder calculi, largest measuring 2.8 cm there is moderate circumferential urinary bladder wall thickening. There are no destructive osseous lesions. Postsurgical changes of a left inguinal repair with hernia plug. IMPRESSION: 1. 6 mm obstructive proximal right ureteral calculus with moderate upstream hydroureteronephrosis. 2. Mild right perinephric stranding, likely reactive to the stone, though ascending urinary tract infection is not excluded. 3. Additional bilateral nonobstructive nephrolithiasis. 4. Large urinary bladder calculi. 5. Moderate prostate enlargement. Correlation with PSA is recommended. 6. Moderate circumferential urinary bladder wall thickening, likely due to chronic partial outflow compromise from prostate enlargement. Electronically signed by: Bret Mcneil MD (02/21/2018 2:15 PM) [id number] VTE Prophylaxis Ordered VTE Prophylaxis Devices: Yes VTE Pharmacological Prophylaxi: Yes Assessment/Plan Assessment/Plan impression 1. 6 mm obstructive proximal right ureteral calculus with moderate upstream hydroureteronephrosis. 2. Mild right perinephric stranding, likely reactive to the stone, though ascending urinary tract infection is not excluded. 3. bilateral nonobstructive nephrolithiasis. 4. Large urinary bladder calculi. 5. ureteral colic 6. Chronic urinary retention plan urology consult right ureteral stent today due to present of UTI iv pain control iv antibiotics npo JORGE A BLANKENSHIP MD Feb 21, 2018 16:51
[2018-02-21] MEDS ORDERED: CIPROFLOXACIN 400MG PREMIX 200 ML IV ONE (17:30)
[2018-02-21] MEDS ORDERED: fentaNYL PF VIAL 100 MCG/2 ML VIAL ONE (17:43)
[2018-02-21] MEDS ORDERED: ONDANSETRON PF 4 MG/2 ML VIAL. ONE (17:44)
[2018-02-21] MEDS ORDERED: DEXAMETHASONE SOD PHOS 20 MG/5 ML VIAL. ONE (17:44)
[2018-02-21] MEDS ORDERED: PROPOFOL 20 ML IV ONE (17:44)
[2018-02-21] MEDS ORDERED: PHENYLEPHRINE in 0.9% NACL PF 1 MG/10 ML SYRINGE. IV ONE (18:23)
[2018-02-21] MEDS ORDERED: IOHEXOL 300 MG/ML 100ML VIAL. IV ONE (18:35)
[2018-02-21] MEDS ORDERED: DESFLURANE 61 TO 120 MINUTES IH ONE (18:48)
--- NOTE | 2018-02-21 18:54 | PDOC4 ---
OPERATIVE NOTE Date: Date: Feb 21, 2018 Pre-Op Diagnosis: right ureteral stone, UTI Post-Op Diagnosis: same Procedure Performed: cystoscopy, right ureteral stent placement, right retrograde pyelogram Surgeon: Kelsie Austin MD Anesthesia Type: general Blood Loss: 0 Specimans Obtained: none Findings: severe right hydronephrosis obstructive prostate large bladder stones Complications: none Operative Note: see dictation ok to d/c home in AM 12/6 if renal function better and no signs of sepsis would treat with cipro 500 BID x 7 days f/u in urology clinic in 1 week KELSIE AUSTIN MD Feb 21, 2018 18:54
--- NOTE | 2018-02-21 19:06 | OP ---
DATE OF SURGERY: 02/21/2018 SURGEON: Kelsie Austin MD [employer]ATE: None. PREOPERATIVE DIAGNOSES: Right ureteral stone and urinary tract infection. POSTOPERATIVE DIAGNOSES: Right ureteral stone and urinary tract infection. PROCEDURE PERFORMED: Cystoscopy with right ureteral stent placement and right retrograde pyelogram. ANESTHESIA TYPE: General. INDICATIONS: This is a 68-year-old male who presented with an obstructing right ureteral stone. He also has an atrophic left kidney. He performed self-catheterization and was noted to have a UTI on admission. After discussion of risks, benefits and alternatives, he agreed to the above procedure. Informed consent was obtained. DESCRIPTION OF PROCEDURE: The patient was taken to the operating room where general anesthesia was induced. He was placed in dorsal lithotomy position and sterilely prepped and draped. A timeout was performed. A rigid cystoscope was advanced through the urethra and into the bladder. The prostate was noted to be obstructive due to lateral and medial lobe enlargement. Two large bladder stones were noted. A catheter was placed into the right ureter and a right retrograde pyelogram was performed, which showed significant ureteral dilation both above and below the stone, and [id number] right hydronephrosis. The stone in the proximal ureter could not be clearly seen on fluoroscopy images. A guidewire was advanced through the right ureteral orifice and up into the right renal pelvis. A 6 x 30 cm stent was then placed over the wire and then the wire was removed. Appropriate curl was seen in both ends of the stent. The bladder was emptied. The patient was then awakened and taken to the recovery room in stable condition. ESTIMATED BLOOD LOSS: None. COMPLICATIONS: None. SPECIMEN: None. KELSIE AUSTIN MD DR: AYAN/joni JOB#: [id number] / [id number]
[2018-02-21] MEDS: fentaNYL PF VIAL 100 MCG/2 ML VIAL IV PRN ×2 (19:29→19:39)
[2018-02-21 19:55] VITALS: BP 154/88
[2018-02-21 20:10] VITALS: BP 146/83
[2018-02-21 20:40] VITALS: BP 130/80
[2018-02-21 21:05] VITALS: BP 133/88
[2018-02-21 22:05] VITALS: BP 106/74
[2018-02-21 23:05] VITALS: BP 111/75
[2018-02-22 03:10] VITALS: BP 97/58
[2018-02-22 06:35] LABS: BASO % 0 % (0-3); EOS % 0 % (0-3); HEMATOCRIT 46.3 % (39.0-53.0); HEMOGLOBIN 16.2 g/dL (13.0-17.5); LYMPH # 0.8 x10^3/uL (1.0-4.8); LYMPH % 4 % (24-48); MEAN CORPUSCULAR HEMOGLOBIN 31 pg (25-35); MEAN CORPUSCULAR HGB CONC 35 g/dL (31-37); MEAN CORPUSCULAR VOLUME 89 fL (79-100); MONO # 0.7 x10^3/uL (0.0-1.1); MONO % 4 % (0-9); NEUT # 17.2 x10^3uL (1.8-7.7); NEUT % 92 % (31-73); PLATELET COUNT 173 x10^3/uL (140-400); RED BLOOD COUNT 5.18 x10^6/uL (4.30-5.70); RED CELL DISTRIBUTION WIDTH 13.5 % (11.5-14.5); WHITE BLOOD COUNT 18.7 x10^3/uL (4.0-11.0)
[2018-02-22 06:49] LABS: CALCIUM 10.4 mg/dL (8.5-10.1); GFR 33.6; POTASSIUM 4.8 mmol/L (3.5-5.1)
[2018-02-22 06:52] LABS: ALBUMIN 2.9 g/dL (3.4-5.0); PHOSPHORUS 2.5 mg/dL (2.6-4.7)
[2018-02-22 07:00] VITALS: BP 122/77
[2018-02-22] MEDS: TAMSULOSIN 0.4 MG CAP.ER.24H. PO SCH (10:07)
[2018-02-22] MEDS: CIPROFLOXACIN 400MG PREMIX 200 ML IV SCH ×2 (10:15→21:10)
[2018-02-22 11:00] VITALS: BP 110/55
[2018-02-22] MEDS ORDERED: fentaNYL PF VIAL 100 MCG/2 ML VIAL IV PRN ×2 (11:00)
[2018-02-22] MEDS: HYDROcodone/APAP 7.5/325MG 1 TAB TABLET PO PRN (11:05)
--- NOTE | 2018-02-22 11:16 | PDOC ---
PROGRESS NOTES History of Present Illness History of Present Illness Assessment/Plan Assessment/Plan impression 1. 6 mm obstructive proximal right ureteral calculus with moderate upstream hydroureteronephrosis. 2. Mild right perinephric stranding, likely reactive to the stone, though ascending urinary tract infection is not excluded. 3. bilateral nonobstructive nephrolithiasis. 4. Large urinary bladder calculi. 5. ureteral colic 6. Chronic urinary retention plan urology consult right ureteral stent today due to present of UTI iv pain control iv antibiotics advance diet Vitals Vitals Vital Signs Date Time Temp Pulse Resp B/P (MAP) Pulse Ox O2 Delivery O2 Flow Rate FiO2 02/22/18 11:05 Room Air 02/22/18 07:00 97.7 73 16 122/77 (92) 97.7 02/22/18 03:10 91 02/21/18 19:39 15.0 Physical Exam General: Alert, Oriented X3, Cooperative, No acute distress, mild distress Heart: Regular rate, Normal S1, No murmurs Lungs: Clear Abdomen: Normal bowel sounds, Soft Extremities: No clubbing, No cyanosis Skin: No significant lesion Labs LABS OPERATIVE NOTE. OPERATIVE NOTE Date: Date: Feb 21, 2018 Pre-Op Diagnosis: right ureteral stone, UTI Post-Op Diagnosis: same Procedure Performed: cystoscopy, right ureteral stent placement, right retrograde pyelogram Surgeon: Severiano Khan MD Laboratory Tests Test 02/21/18 12:45 02/21/18 13:15 02/22/18 06:04 Urine Collection Type Unknown Urine Color Yellow Urine Clarity Cloudy Urine pH 7.5 Urine Specific [place] 1.015 Urine Protein 100 mg/dL (NEG-TRACE) Urine Glucose (UA) Negative mg/dL (NEG) Urine Ketones (Stick) Negative mg/dL (NEG) Urine Blood Large (NEG) Urine Nitrite Positive (NEG) Urine Bilirubin Negative (NEG) Urine Urobilinogen Dipstick 0.2 mg/dL (0.2 mg/dL) Urine Leukocyte Esterase Large (NEG) Urine RBC >40 /HPF (0-2) Urine WBC Tntc /HPF (0-4) Urine Bacteria Many /HPF (0-FEW) White Blood Count 13.4 x10^3/uL (4.0-11.0) 18.7 x10^3/uL (4.0-11.0) Red Blood Count 5.73 x10^6/uL (4.30-5.70) 5.18 x10^6/uL (4.30-5.70) Hemoglobin 17.7 g/dL (13.0-17.5) 16.2 g/dL (13.0-17.5) Hematocrit 51.0 % (39.0-53.0) 46.3 % (39.0-53.0) Mean Corpuscular Volume 89 fL (79-100) 89 fL (79-100) Mean Corpuscular Hemoglobin 31 pg (25-35) 31 pg (25-35) Mean Corpuscular Hemoglobin Concent 35 g/dL (31-37) 35 g/dL (31-37) Red Cell Distribution Width 13.4 % (11.5-14.5) 13.5 % (11.5-14.5) Platelet Count 171 x10^3/uL (140-400) 173 x10^3/uL (140-400) Neutrophils (%) (Auto) 87 % (31-73) 92 % (31-73) Lymphocytes (%) (Auto) 8 % (24-48) 4 % (24-48) Monocytes (%) (Auto) 5 % (0-9) 4 % (0-9) Eosinophils (%) (Auto) 0 % (0-3) 0 % (0-3) Basophils (%) (Auto) 0 % (0-3) 0 % (0-3) Neutrophils # (Auto) 11.6 x10^3uL (1.8-7.7) 17.2 x10^3uL (1.8-7.7) Lymphocytes # (Auto) 1.0 x10^3/uL (1.0-4.8) 0.8 x10^3/uL (1.0-4.8) Monocytes # (Auto) 0.7 x10^3/uL (0.0-1.1) 0.7 x10^3/uL (0.0-1.1) Eosinophils # (Auto) 0.0 x10^3/uL (0.0-0.7) 0.0 x10^3/uL (0.0-0.7) Basophils # (Auto) 0.1 x10^3/uL (0.0-0.2) 0.0 x10^3/uL (0.0-0.2) Segmented Neutrophils % 85 % (35-66) Band Neutrophils % 3 % (0-9) Lymphocytes % 8 % (24-48) Monocytes % 4 % (0-10) Platelet Estimate Adequate (ADEQUATE) Sodium Level 142 mmol/L (136-145) 140 mmol/L (136-145) Potassium Level 4.8 mmol/L (3.5-5.1) 4.8 mmol/L (3.5-5.1) Chloride Level 107 mmol/L (98-107) 107 mmol/L (98-107) Carbon Dioxide Level 22 mmol/L (21-32) 25 mmol/L (21-32) Anion Gap 13 (6-14) 8 (6-14) Blood Urea Nitrogen 31 mg/dL (8-26) 32 mg/dL (8-26) Creatinine 2.1 mg/dL (0.7-1.3) 2.0 mg/dL (0.7-1.3) Estimated GFR (Cockcroft-Gault) 31.8 33.6 BUN/Creatinine Ratio 15 (6-20) Glucose Level 122 mg/dL (70-99) 140 mg/dL (70-99) Calcium Level 10.9 mg/dL (8.5-10.1) 10.4 mg/dL (8.5-10.1) Total Bilirubin 0.7 mg/dL (0.2-1.0) Aspartate Amino Transf (AST/SGOT) 17 U/L (15-37) Alanine Aminotransferase (ALT/SGPT) 27 U/L (16-63) Alkaline Phosphatase 109 U/L (46-116) Creatine Kinase 103 U/L (39-308) Creatine Kinase MB (Mass) 2.7 ng/mL (0.0-3.6) Creatine Kinase MB Relative Index 2.6 % (0-4) Troponin I Quantitative < 0.017 ng/mL (0.000-0.055) Total Protein 7.2 g/dL (6.4-8.2) Albumin 3.6 g/dL (3.4-5.0) 2.9 g/dL (3.4-5.0) Albumin/Globulin Ratio 1.0 (1.0-1.7) Lipase 164 U/L (73-393) Phosphorus Level 2.5 mg/dL (2.6-4.7) Assessment and Plan Assessmemt and Plan Problems Medical Problems: (1) Kidney stone Status: Acute (2) Pyelonephritis Status: Acute (3) UTI (urinary tract infection) Status: Acute Comment Review of Relevant I have reviewed the following items kayla (where applicable) has been applied. Labs Laboratory Tests Test 02/21/18 12:45 02/21/18 13:15 02/22/18 06:04 Urine Collection Type Unknown Urine Color Yellow Urine Clarity Cloudy Urine pH 7.5 Urine Specific [place] 1.015 Urine Protein 100 mg/dL (NEG-TRACE) Urine Glucose (UA) Negative mg/dL (NEG) Urine Ketones (Stick) Negative mg/dL (NEG) Urine Blood Large (NEG) Urine Nitrite Positive (NEG) Urine Bilirubin Negative (NEG) Urine Urobilinogen Dipstick 0.2 mg/dL (0.2 mg/dL) Urine Leukocyte Esterase Large (NEG) Urine RBC >40 /HPF (0-2) Urine WBC Tntc /HPF (0-4) Urine Bacteria Many /HPF (0-FEW) White Blood Count 13.4 x10^3/uL (4.0-11.0) 18.7 x10^3/uL (4.0-11.0) Red Blood Count 5.73 x10^6/uL (4.30-5.70) 5.18 x10^6/uL (4.30-5.70) Hemoglobin 17.7 g/dL (13.0-17.5) 16.2 g/dL (13.0-17.5) Hematocrit 51.0 % (39.0-53.0) 46.3 % (39.0-53.0) Mean Corpuscular Volume 89 fL (79-100) 89 fL (79-100) Mean Corpuscular Hemoglobin 31 pg (25-35) 31 pg (25-35) Mean Corpuscular Hemoglobin Concent 35 g/dL (31-37) 35 g/dL (31-37) Red Cell Distribution Width 13.4 % (11.5-14.5) 13.5 % (11.5-14.5) Platelet Count 171 x10^3/uL (140-400) 173 x10^3/uL (140-400) Neutrophils (%) (Auto) 87 % (31-73) 92 % (31-73) Lymphocytes (%) (Auto) 8 % (24-48) 4 % (24-48) Monocytes (%) (Auto) 5 % (0-9) 4 % (0-9) Eosinophils (%) (Auto) 0 % (0-3) 0 % (0-3) Basophils (%) (Auto) 0 % (0-3) 0 % (0-3) Neutrophils # (Auto) 11.6 x10^3uL (1.8-7.7) 17.2 x10^3uL (1.8-7.7) Lymphocytes # (Auto) 1.0 x10^3/uL (1.0-4.8) 0.8 x10^3/uL (1.0-4.8) Monocytes # (Auto) 0.7 x10^3/uL (0.0-1.1) 0.7 x10^3/uL (0.0-1.1) Eosinophils # (Auto) 0.0 x10^3/uL (0.0-0.7) 0.0 x10^3/uL (0.0-0.7) Basophils # (Auto) 0.1 x10^3/uL (0.0-0.2) 0.0 x10^3/uL (0.0-0.2) Segmented Neutrophils % 85 % (35-66) Band Neutrophils % 3 % (0-9) Lymphocytes % 8 % (24-48) Monocytes % 4 % (0-10) Platelet Estimate Adequate (ADEQUATE) Sodium Level 142 mmol/L (136-145) 140 mmol/L (136-145) Potassium Level 4.8 mmol/L (3.5-5.1) 4.8 mmol/L (3.5-5.1) Chloride Level 107 mmol/L (98-107) 107 mmol/L (98-107) Carbon Dioxide Level 22 mmol/L (21-32) 25 mmol/L (21-32) Anion Gap 13 (6-14) 8 (6-14) Blood Urea Nitrogen 31 mg/dL (8-26) 32 mg/dL (8-26) Creatinine 2.1 mg/dL (0.7-1.3) 2.0 mg/dL (0.7-1.3) Estimated GFR (Cockcroft-Gault) 31.8 33.6 BUN/Creatinine Ratio 15 (6-20) Glucose Level 122 mg/dL (70-99) 140 mg/dL (70-99) Calcium Level 10.9 mg/dL (8.5-10.1) 10.4 mg/dL (8.5-10.1) Total Bilirubin 0.7 mg/dL (0.2-1.0) Aspartate Amino Transf (AST/SGOT) 17 U/L (15-37) Alanine Aminotransferase (ALT/SGPT) 27 U/L (16-63) Alkaline Phosphatase 109 U/L (46-116) Creatine Kinase 103 U/L (39-308) Creatine Kinase MB (Mass) 2.7 ng/mL (0.0-3.6) Creatine Kinase MB Relative Index 2.6 % (0-4) Troponin I Quantitative < 0.017 ng/mL (0.000-0.055) Total Protein 7.2 g/dL (6.4-8.2) Albumin 3.6 g/dL (3.4-5.0) 2.9 g/dL (3.4-5.0) Albumin/Globulin Ratio 1.0 (1.0-1.7) Lipase 164 U/L (73-393) Phosphorus Level 2.5 mg/dL (2.6-4.7) Laboratory Tests Test 02/21/18 12:45 02/21/18 13:15 02/22/18 06:04 Urine Collection Type Unknown Urine Color Yellow Urine Clarity Cloudy Urine pH 7.5 Urine Specific [place] 1.015 Urine Protein 100 mg/dL (NEG-TRACE) Urine Glucose (UA) Negative mg/dL (NEG) Urine Ketones (Stick) Negative mg/dL (NEG) Urine Blood Large (NEG) Urine Nitrite Positive (NEG) Urine Bilirubin Negative (NEG) Urine Urobilinogen Dipstick 0.2 mg/dL (0.2 mg/dL) Urine Leukocyte Esterase Large (NEG) Urine RBC >40 /HPF (0-2) Urine WBC Tntc /HPF (0-4) Urine Bacteria Many /HPF (0-FEW) White Blood Count 13.4 x10^3/uL (4.0-11.0) 18.7 x10^3/uL (4.0-11.0) Red Blood Count 5.73 x10^6/uL (4.30-5.70) 5.18 x10^6/uL (4.30-5.70) Hemoglobin 17.7 g/dL (13.0-17.5) 16.2 g/dL (13.0-17.5) Hematocrit 51.0 % (39.0-53.0) 46.3 % (39.0-53.0) Mean Corpuscular Volume 89 fL (79-100) 89 fL (79-100) Mean Corpuscular Hemoglobin 31 pg (25-35) 31 pg (25-35) Mean Corpuscular Hemoglobin Concent 35 g/dL (31-37) 35 g/dL (31-37) Red Cell Distribution Width 13.4 % (11.5-14.5) 13.5 % (11.5-14.5) Platelet Count 171 x10^3/uL (140-400) 173 x10^3/uL (140-400) Neutrophils (%) (Auto) 87 % (31-73) 92 % (31-73) Lymphocytes (%) (Auto) 8 % (24-48) 4 % (24-48) Monocytes (%) (Auto) 5 % (0-9) 4 % (0-9) Eosinophils (%) (Auto) 0 % (0-3) 0 % (0-3) Basophils (%) (Auto) 0 % (0-3) 0 % (0-3) Neutrophils # (Auto) 11.6 x10^3uL (1.8-7.7) 17.2 x10^3uL (1.8-7.7) Lymphocytes # (Auto) 1.0 x10^3/uL (1.0-4.8) 0.8 x10^3/uL (1.0-4.8) Monocytes # (Auto) 0.7 x10^3/uL (0.0-1.1) 0.7 x10^3/uL (0.0-1.1) Eosinophils # (Auto) 0.0 x10^3/uL (0.0-0.7) 0.0 x10^3/uL (0.0-0.7) Basophils # (Auto) 0.1 x10^3/uL (0.0-0.2) 0.0 x10^3/uL (0.0-0.2) Segmented Neutrophils % 85 % (35-66) Band Neutrophils % 3 % (0-9) Lymphocytes % 8 % (24-48) Monocytes % 4 % (0-10) Platelet Estimate Adequate (ADEQUATE) Sodium Level 142 mmol/L (136-145) 140 mmol/L (136-145) Potassium Level 4.8 mmol/L (3.5-5.1) 4.8 mmol/L (3.5-5.1) Chloride Level 107 mmol/L (98-107) 107 mmol/L (98-107) Carbon Dioxide Level 22 mmol/L (21-32) 25 mmol/L (21-32) Anion Gap 13 (6-14) 8 (6-14) Blood Urea Nitrogen 31 mg/dL (8-26) 32 mg/dL (8-26) Creatinine 2.1 mg/dL (0.7-1.3) 2.0 mg/dL (0.7-1.3) Estimated GFR (Cockcroft-Gault) 31.8 33.6 BUN/Creatinine Ratio 15 (6-20) Glucose Level 122 mg/dL (70-99) 140 mg/dL (70-99) Calcium Level 10.9 mg/dL (8.5-10.1) 10.4 mg/dL (8.5-10.1) Total Bilirubin 0.7 mg/dL (0.2-1.0) Aspartate Amino Transf (AST/SGOT) 17 U/L (15-37) Alanine Aminotransferase (ALT/SGPT) 27 U/L (16-63) Alkaline Phosphatase 109 U/L (46-116) Creatine Kinase 103 U/L (39-308) Creatine Kinase MB (Mass) 2.7 ng/mL (0.0-3.6) Creatine Kinase MB Relative Index 2.6 % (0-4) Troponin I Quantitative < 0.017 ng/mL (0.000-0.055) Total Protein 7.2 g/dL (6.4-8.2) Albumin 3.6 g/dL (3.4-5.0) 2.9 g/dL (3.4-5.0) Albumin/Globulin Ratio 1.0 (1.0-1.7) Lipase 164 U/L (73-393) Phosphorus Level 2.5 mg/dL (2.6-4.7) Medications Current Medications Sodium Chloride 1,000 ml @ 1,000 mls/hr Q1H IV Last administered on 02/21/18at 13:20; Start 02/21/18 at 12:46; Stop 02/21/18 at 13:45; Status DC Ketorolac Tromethamine (Toradol 30mg Vial) 30 mg 1X ONCE IV Last administered on 02/21/18at 13:21; Start 02/21/18 at 13:00; Stop 02/21/18 at 13:01; Status DC Ondansetron HCl (Zofran) 4 mg 1X ONCE IV Last administered on 02/21/18at 13:20 ; Start 02/21/18 at 13:30; Stop 02/21/18 at 13:31; Status DC Ceftriaxone Sodium 50 ml @ 100 mls/hr 1X ONCE IV ; Start 02/21/18 at 14:00; Stop 02/21/18 at 14:29; Status UNV Ceftriaxone Sodium (Rocephin) 1 gm 1X ONCE IVP Last administered on 02/21/18at 14:13; Start 02/21/18 at 14:15; Stop 02/21/18 at 14:16; Status DC Hydromorphone HCl (Dilaudid) 1 mg 1X ONCE IV Last administered on 02/21/18at 15 :47; Start 02/21/18 at 15:45; Stop 02/21/18 at 15:46; Status DC Ondansetron HCl (Zofran) 4 mg 1X ONCE IV Last administered on 02/21/18at 15:46 ; Start 02/21/18 at 15:45; Stop 02/21/18 at 15:46; Status DC Ondansetron HCl (Zofran) 4 mg PRN Q6HRS PRN IV NAUSEA/VOMITING; Start 02/21/18 at 15:45; Stop 02/21/18 at 18:00; Status DC Fentanyl Citrate (Fentanyl 2ml Vial) 25 mcg PRN Q5MIN PRN IV MILD PAIN; Start 02/21/18 at 15:45; Stop 02/21/18 at 18:00; Status DC Fentanyl Citrate (Fentanyl 2ml Vial) 50 mcg PRN Q5MIN PRN IV MODERATE TO SEVERE PAIN Last administered on 02/21/18at 19:39; Start 02/21/18 at 15:45; Stop 02/21/18 at 20:00; Status DC Morphine Sulfate (Morphine Sulfate) 1 mg PRN Q10MIN PRN IV SEVERE PAIN; Start 02/21/18 at 15:45; Stop 02/21/18 at 20:00; Status DC Ringer's Solution 1,000 ml @ 30 mls/hr Q24H IV Last administered on 02/21/18at 18:02; Start 02/21/18 at 15:43; Stop 02/22/18 at 03:42; Status DC Lidocaine HCl (Xylocaine-Mpf 1% 2ml Vial) 2 ml 1X PRN PRN ID IV START; Start 02/21/18 at 15:45; Stop 02/21/18 at 20:00; Status DC Hydromorphone HCl (Dilaudid) 0.5 mg PRN Q10MIN PRN IV SEV PAIN, Second choice; Start 02/21/18 at 15:45; Stop 02/21/18 at 18:00; Status DC Prochlorperazine Edisylate (Compazine) 5 mg PACU PRN PRN IV NAUSEA, MRX1; Start 02/21/18 at 15:45; Stop 02/21/18 at 18:00; Status DC Iohexol (Omnipaque 300 Mg/ml) 100 ml STK-MED ONCE .ROUTE ; Start 02/21/18 at 16: 02; Stop 02/21/18 at 16:03; Status DC Lidocaine HCl (Glydo (Lidocaine) Jelly) 6 josue STK-MED ONCE .ROUTE ; Start at 16:02; Stop 02/21/18 at 16:03; Status DC Ciprofloxacin/ Dextrose 200 ml @ 200 mls/hr Q12HR IV Last administered on 02/22at 10:15; Start 02/22/18 at 09:00 Ciprofloxacin/ Dextrose 200 ml @ 200 mls/hr ONCE ONCE IV Last administered on 02/21/18at 18:15; Start 02/21/18 at 17:30; Stop 02/21/18 at 18:29; Status DC Tamsulosin HCl (Flomax) 0.4 mg DAILY PO Last administered on 02/22/18at 10:07; Start 02/22/18 at 09:00 Iohexol (Omnipaque 300 Mg/ml) 100 ml STK-MED ONCE .ROUTE ; Start 02/21/18 at 17: 43; Stop 02/21/18 at 17:44; Status DC Fentanyl Citrate (Fentanyl 2ml Vial) 100 mcg STK-MED ONCE .ROUTE ; Start at 17:43; Stop 02/21/18 at 17:44; Status DC Lidocaine HCl (Glydo (Lidocaine) Jelly) 6 josue STK-MED ONCE .ROUTE ; Start at 17:43; Stop 02/21/18 at 17:44; Status Cancel Lidocaine HCl (Glydo (Lidocaine) Jelly) 6 josue STK-MED ONCE .ROUTE ; Start at 17:43; Stop 02/21/18 at 17:44; Status DC Dexamethasone Sodium Phosphate (Decadron) 20 mg STK-MED ONCE .ROUTE ; Start 02/21/18 at 17:44; Stop 02/21/18 at 17:45; Status DC Propofol 20 ml @ As Directed STK-MED ONCE IV ; Start 02/21/18 at 17:44; Stop at 17:45; Status DC Ondansetron HCl (Zofran) 4 mg STK-MED ONCE .ROUTE ; Start 02/21/18 at 17:44; Stop 02/21/18 at 17:45; Status DC Phenylephrine HCl (PHENYLEPHRINE in 0.9% NACL PF) 1 mg STK-MED ONCE IV ; Start 02/21/18 at 18:23; Stop 02/21/18 at 18:24; Status DC Iohexol (Omnipaque 300 Mg/ml) 100 ml STK-MED ONCE IV Last administered on at 18:35; Start 02/21/18 at 18:35; Stop 02/21/18 at 18:38; Status DC Desflurane (Suprane) 60 ml STK-MED ONCE IH ; Start 02/21/18 at 18:48; Stop 02/21 at 18:49; Status DC Lactobacillus Rhamnosus (Culturelle) 1 cap BID PO ; Start 02/22/18 at 21:00 Acetaminophen/ Hydrocodone Bitart (Lortab 7.5/325) 1 tab PRN Q3HRS PRN PO MODERATE PAIN Last administered on 02/22/18at 11:05; Start 02/22/18 at 11:00 Fentanyl Citrate (Fentanyl 2ml Vial) 50 mcg PRN Q2HR PRN IV SEVERE PAIN; Start 02/22/18 at 11:00 Fentanyl Citrate (Fentanyl 2ml Vial) 25 mcg PRN Q2HR PRN IV MODERATE PAIN; Start 02/22/18 at 11:00 Active Scripts Active Flomax (Tamsulosin Hcl) 0.4 Mg Cap.er.24h 1 Cap PO DAILY Cipro (Ciprofloxacin Hcl) 500 Mg Tablet 500 Mg PO BID 5 Days Reported Aspirin 325 Mg Tablet 1 Tab PO PRN PRN Vitals/I & O Vital Sign - Last 24 Hours 02/21/18 02/21/18 02/21/18 02/21/18 12:30 12:33 13:00 14:15 Temp 97.6 97.6 Pulse 60 59 72 57 Resp 16 18 17 18 B/P (MAP) 173/87 (115) 173/87 (115) 149/78 (101) 150/80 (103) Pulse Ox 97 96 96 94 O2 Delivery Room Air Room Air Room Air Room Air 02/21/18 02/21/18 02/21/18 02/21/18 15:30 15:47 17:32 18:46 Temp 99.4 98.4 99.4 98.4 Pulse 58 84 80 Resp 18 16 16 B/P (MAP) 117/58 (77) 153/87 100/60 Pulse Ox 100 96 96 98 O2 Delivery Room Air Simple Mask O2 Flow Rate 15 02/21/18 02/21/18 02/21/18 02/21/18 18:46 19:01 19:16 19:29 Pulse 79 82 Resp 16 16 16 B/P (MAP) 105/61 123/70 Pulse Ox 98 98 98 O2 Delivery Mask Simple Mask Room Air Room Air O2 Flow Rate 15 15 15.0 02/21/18 02/21/18 02/21/18 02/21/18 19:31 19:39 19:55 20:00 Temp 97.6 97.6 Pulse 75 79 Resp 16 16 18 B/P (MAP) 142/81 154/88 (110) Pulse Ox 94 94 93 O2 Delivery Room Air Room Air Room Air Room Air O2 Flow Rate 15.0 02/21/18 02/21/18 02/21/18 02/21/18 20:10 20:40 21:05 22:05 Temp 97.9 98.1 98.1 98.1 97.9 98.1 98.1 98.1 Pulse 76 75 77 97 Resp 18 18 B/P (MAP) 146/83 (104) 130/80 (97) 133/88 (103) 106/74 (85) Pulse Ox 91 98 93 91 O2 Delivery Room Air Room Air Room Air Room Air 02/21/18 02/22/18 02/22/18 02/22/18 23:05 03:10 07:00 11:05 Temp 98.0 98.3 97.7 98.0 98.3 97.7 Pulse 79 56 73 Resp 18 18 16 B/P (MAP) 111/75 (87) 97/58 (71) 122/77 (92) Pulse Ox 92 91 O2 Delivery Room Air Room Air Room Air Room Air Intake and Output 02/21/18 02/21/18 02/22/18 15:00 23:00 07:00 Intake Total 2880 ml 740 ml Output Total 10 ml 450 ml Balance 2870 ml 290 ml JORGE A BLANKENSHIP MD Feb 22, 2018 11:16
--- NOTE | 2018-02-22 14:20 | PDOC2 ---
CONSULT Date of Consult Date of Consult DATE: 02/22/18 TIME: 14:16 Reason for Consult Reason for Consult: noamie Identification/Chief Complaint Chief Complaint Renal stones Source Source: Chart review, Patient History of Present Illness Reason for Visit: 68 yo C male with 1 day of right flank pain radiating to RLQ. Came to ER , CT - revealing 6 mm proximal right ureter stone, as well as left renal atrophy with 1 cm left lower pole stone, 6 mm right lower pole stone. Also two large bladder stones (3.5 cm and 2.2 cm diameter). Has chronic urinary retention, managed bladder with intermittent catheterization.UA consistent with UTI. No fevers, chills.nO n/v /D . Was Hospitalized in 2014- NAOMIE, Hydronephrosis. Hx of urinary retention due to bph- does Straight cath , was following with Dr. Hurt - Plan for Prostectomy Past Medical History Cardiovascular: HTN Pulmonary: Other CENTRAL NERVOUS SYSTEM: Other GI: GERD Heme/Onc: No pertinent hx Hepatobiliary: No pertinent hx Psych: No pertinent hx Musculoskeletal: Osteoarthritis Rheumatologic: No pertinent hx Infectious disease: No pertinent hx Renal/: Benign prostatic enlarg., Other Endocrine: No pertinent hx Past Surgical History Past Surgical History: Other Family History Family History: No Significant, High Cholestrol Social History <1 pack per day ALCOHOL: occassional Drugs: None Lives: with Family Domestic Violence: Neg Current Problem List Problem List Problems Medical Problems: (1) Kidney stone Status: Acute (2) Pyelonephritis Status: Acute (3) UTI (urinary tract infection) Status: Acute Current Medications Current Medications Current Medications Sodium Chloride 1,000 ml @ 1,000 mls/hr Q1H IV Last administered on 02/21/18at 13:20; Start 02/21/18 at 12:46; Stop 02/21/18 at 13:45; Status DC Ketorolac Tromethamine (Toradol 30mg Vial) 30 mg 1X ONCE IV Last administered on 02/21/18at 13:21; Start 02/21/18 at 13:00; Stop 02/21/18 at 13:01; Status DC Ondansetron HCl (Zofran) 4 mg 1X ONCE IV Last administered on 02/21/18at 13:20 ; Start 02/21/18 at 13:30; Stop 02/21/18 at 13:31; Status DC Ceftriaxone Sodium 50 ml @ 100 mls/hr 1X ONCE IV ; Start 02/21/18 at 14:00; Stop 02/21/18 at 14:29; Status UNV Ceftriaxone Sodium (Rocephin) 1 gm 1X ONCE IVP Last administered on 02/21/18at 14:13; Start 02/21/18 at 14:15; Stop 02/21/18 at 14:16; Status DC Hydromorphone HCl (Dilaudid) 1 mg 1X ONCE IV Last administered on 02/21/18at 15 :47; Start 02/21/18 at 15:45; Stop 02/21/18 at 15:46; Status DC Ondansetron HCl (Zofran) 4 mg 1X ONCE IV Last administered on 02/21/18at 15:46 ; Start 02/21/18 at 15:45; Stop 02/21/18 at 15:46; Status DC Ondansetron HCl (Zofran) 4 mg PRN Q6HRS PRN IV NAUSEA/VOMITING; Start 02/21/18 at 15:45; Stop 02/21/18 at 18:00; Status DC Fentanyl Citrate (Fentanyl 2ml Vial) 25 mcg PRN Q5MIN PRN IV MILD PAIN; Start 02/21/18 at 15:45; Stop 02/21/18 at 18:00; Status DC Fentanyl Citrate (Fentanyl 2ml Vial) 50 mcg PRN Q5MIN PRN IV MODERATE TO SEVERE PAIN Last administered on 02/21/18at 19:39; Start 02/21/18 at 15:45; Stop 02/21/18 at 20:00; Status DC Morphine Sulfate (Morphine Sulfate) 1 mg PRN Q10MIN PRN IV SEVERE PAIN; Start 02/21/18 at 15:45; Stop 02/21/18 at 20:00; Status DC Ringer's Solution 1,000 ml @ 30 mls/hr Q24H IV Last administered on 02/21/18at 18:02; Start 02/21/18 at 15:43; Stop 02/22/18 at 03:42; Status DC Lidocaine HCl (Xylocaine-Mpf 1% 2ml Vial) 2 ml 1X PRN PRN ID IV START; Start 02/21/18 at 15:45; Stop 02/21/18 at 20:00; Status DC Hydromorphone HCl (Dilaudid) 0.5 mg PRN Q10MIN PRN IV SEV PAIN, Second choice; Start 02/21/18 at 15:45; Stop 02/21/18 at 18:00; Status DC Prochlorperazine Edisylate (Compazine) 5 mg PACU PRN PRN IV NAUSEA, MRX1; Start 02/21/18 at 15:45; Stop 02/21/18 at 18:00; Status DC Iohexol (Omnipaque 300 Mg/ml) 100 ml STK-MED ONCE .ROUTE ; Start 02/21/18 at 16: 02; Stop 02/21/18 at 16:03; Status DC Lidocaine HCl (Glydo (Lidocaine) Jelly) 6 josue STK-MED ONCE .ROUTE ; Start at 16:02; Stop 02/21/18 at 16:03; Status DC Ciprofloxacin/ Dextrose 200 ml @ 200 mls/hr Q12HR IV Last administered on 02/22at 10:15; Start 02/22/18 at 09:00 Ciprofloxacin/ Dextrose 200 ml @ 200 mls/hr ONCE ONCE IV Last administered on 02/21/18at 18:15; Start 02/21/18 at 17:30; Stop 02/21/18 at 18:29; Status DC Tamsulosin HCl (Flomax) 0.4 mg DAILY PO Last administered on 02/22/18at 10:07; Start 02/22/18 at 09:00 Iohexol (Omnipaque 300 Mg/ml) 100 ml STK-MED ONCE .ROUTE ; Start 02/21/18 at 17: 43; Stop 02/21/18 at 17:44; Status DC Fentanyl Citrate (Fentanyl 2ml Vial) 100 mcg STK-MED ONCE .ROUTE ; Start at 17:43; Stop 02/21/18 at 17:44; Status DC Lidocaine HCl (Glydo (Lidocaine) Jelly) 6 josue STK-MED ONCE .ROUTE ; Start at 17:43; Stop 02/21/18 at 17:44; Status Cancel Lidocaine HCl (Glydo (Lidocaine) Jelly) 6 josue STK-MED ONCE .ROUTE ; Start at 17:43; Stop 02/21/18 at 17:44; Status DC Dexamethasone Sodium Phosphate (Decadron) 20 mg STK-MED ONCE .ROUTE ; Start 02/21/18 at 17:44; Stop 02/21/18 at 17:45; Status DC Propofol 20 ml @ As Directed STK-MED ONCE IV ; Start 02/21/18 at 17:44; Stop at 17:45; Status DC Ondansetron HCl (Zofran) 4 mg STK-MED ONCE .ROUTE ; Start 02/21/18 at 17:44; Stop 02/21/18 at 17:45; Status DC Phenylephrine HCl (PHENYLEPHRINE in 0.9% NACL PF) 1 mg STK-MED ONCE IV ; Start 02/21/18 at 18:23; Stop 02/21/18 at 18:24; Status DC Iohexol (Omnipaque 300 Mg/ml) 100 ml STK-MED ONCE IV Last administered on at 18:35; Start 02/21/18 at 18:35; Stop 02/21/18 at 18:38; Status DC Desflurane (Suprane) 60 ml STK-MED ONCE IH ; Start 02/21/18 at 18:48; Stop 02/21 at 18:49; Status DC Lactobacillus Rhamnosus (Culturelle) 1 cap BID PO ; Start 02/22/18 at 21:00 Acetaminophen/ Hydrocodone Bitart (Lortab 7.5/325) 1 tab PRN Q3HRS PRN PO MODERATE PAIN Last administered on 02/22/18at 11:05; Start 02/22/18 at 11:00 Fentanyl Citrate (Fentanyl 2ml Vial) 50 mcg PRN Q2HR PRN IV SEVERE PAIN; Start 02/22/18 at 11:00 Fentanyl Citrate (Fentanyl 2ml Vial) 25 mcg PRN Q2HR PRN IV MODERATE PAIN; Start 02/22/18 at 11:00 Active Scripts Active Flomax (Tamsulosin Hcl) 0.4 Mg Cap.er.24h 1 Cap PO DAILY Cipro (Ciprofloxacin Hcl) 500 Mg Tablet 500 Mg PO BID 5 Days Reported Aspirin 325 Mg Tablet 1 Tab PO PRN PRN Allergies Allergies: Coded Allergies: I S O L A T I O N *CONTACT* (Verified Allergy, Unknown, 07/19/15) mrsa + No Known Medication Allergies (Verified Allergy, Unknown, 07/19/15) ROS Review of System As per HPI Physical Exam Physical Exam General: Alert, Oriented X3, Cooperative, mild distress HEENT: Atraumatic Lungs: Clear to auscultation, Normal air movement Heart: S1S2, RRR, no thrills Abdomen: Normal bowel sounds, Soft Extremities: No clubbing, No cyanosis, No edema Neuro: Normal speech, Cranial nerves 3-12 NL Psych/Mental Status: Mental status NL, Mood NL - No vargas , No SP, or CVA tenderness Vital Signs Vital Signs Date Time Temp Pulse Resp B/P (MAP) Pulse Ox O2 Delivery O2 Flow Rate FiO2 02/22/18 12:05 16 Room Air 02/22/18 11:00 98.8 61 110/55 (73) 96 98.8 02/21/18 19:39 15.0 Assessment & Plan NAOMIE - Nephrolithiasis, , urinary retention, UTI Improving S/P Rt ureteral stent Lytes and acid base stable CKD 3 baseline Cr 1.6- 1.8 (based on labs in the system) Lt Atrophic Kidney , urinary retention- BPH- straight cath at home Hospitalized in 2013 for Dhillon/Hydronephrosis/NAOMIE Nephrolithiasis- Urology following s/p right ureteral stent ,Will need delayed stone surgery (probably ureteroscopy ) 24 Ur For stone risk analysis - can be done as OP , advised plenty of fluids ( goal at [id number] Urine /day ) Discussed Dietary recommendations with patient UTI- On Abx Hypercalcemia - denies Tums or Ca supplements Discussed with Pt and RN Follow up with us in 1-2 Months after dc Labs Labs Laboratory Tests Test 02/21/18 12:45 02/21/18 13:15 02/22/18 06:04 Urine Collection Type Unknown Urine Color Yellow Urine Clarity Cloudy Urine pH 7.5 Urine Specific [place] 1.015 Urine Protein 100 mg/dL (NEG-TRACE) Urine Glucose (UA) Negative mg/dL (NEG) Urine Ketones (Stick) Negative mg/dL (NEG) Urine Blood Large (NEG) Urine Nitrite Positive (NEG) Urine Bilirubin Negative (NEG) Urine Urobilinogen Dipstick 0.2 mg/dL (0.2 mg/dL) Urine Leukocyte Esterase Large (NEG) Urine RBC >40 /HPF (0-2) Urine WBC Tntc /HPF (0-4) Urine Bacteria Many /HPF (0-FEW) White Blood Count 13.4 x10^3/uL (4.0-11.0) 18.7 x10^3/uL (4.0-11.0) Red Blood Count 5.73 x10^6/uL (4.30-5.70) 5.18 x10^6/uL (4.30-5.70) Hemoglobin 17.7 g/dL (13.0-17.5) 16.2 g/dL (13.0-17.5) Hematocrit 51.0 % (39.0-53.0) 46.3 % (39.0-53.0) Mean Corpuscular Volume 89 fL (79-100) 89 fL (79-100) Mean Corpuscular Hemoglobin 31 pg (25-35) 31 pg (25-35) Mean Corpuscular Hemoglobin Concent 35 g/dL (31-37) 35 g/dL (31-37) Red Cell Distribution Width 13.4 % (11.5-14.5) 13.5 % (11.5-14.5) Platelet Count 171 x10^3/uL (140-400) 173 x10^3/uL (140-400) Neutrophils (%) (Auto) 87 % (31-73) 92 % (31-73) Lymphocytes (%) (Auto) 8 % (24-48) 4 % (24-48) Monocytes (%) (Auto) 5 % (0-9) 4 % (0-9) Eosinophils (%) (Auto) 0 % (0-3) 0 % (0-3) Basophils (%) (Auto) 0 % (0-3) 0 % (0-3) Neutrophils # (Auto) 11.6 x10^3uL (1.8-7.7) 17.2 x10^3uL (1.8-7.7) Lymphocytes # (Auto) 1.0 x10^3/uL (1.0-4.8) 0.8 x10^3/uL (1.0-4.8) Monocytes # (Auto) 0.7 x10^3/uL (0.0-1.1) 0.7 x10^3/uL (0.0-1.1) Eosinophils # (Auto) 0.0 x10^3/uL (0.0-0.7) 0.0 x10^3/uL (0.0-0.7) Basophils # (Auto) 0.1 x10^3/uL (0.0-0.2) 0.0 x10^3/uL (0.0-0.2) Segmented Neutrophils % 85 % (35-66) Band Neutrophils % 3 % (0-9) Lymphocytes % 8 % (24-48) Monocytes % 4 % (0-10) Platelet Estimate Adequate (ADEQUATE) Sodium Level 142 mmol/L (136-145) 140 mmol/L (136-145) Potassium Level 4.8 mmol/L (3.5-5.1) 4.8 mmol/L (3.5-5.1) Chloride Level 107 mmol/L (98-107) 107 mmol/L (98-107) Carbon Dioxide Level 22 mmol/L (21-32) 25 mmol/L (21-32) Anion Gap 13 (6-14) 8 (6-14) Blood Urea Nitrogen 31 mg/dL (8-26) 32 mg/dL (8-26) Creatinine 2.1 mg/dL (0.7-1.3) 2.0 mg/dL (0.7-1.3) Estimated GFR (Cockcroft-Gault) 31.8 33.6 BUN/Creatinine Ratio 15 (6-20) Glucose Level 122 mg/dL (70-99) 140 mg/dL (70-99) Calcium Level 10.9 mg/dL (8.5-10.1) 10.4 mg/dL (8.5-10.1) Total Bilirubin 0.7 mg/dL (0.2-1.0) Aspartate Amino Transf (AST/SGOT) 17 U/L (15-37) Alanine Aminotransferase (ALT/SGPT) 27 U/L (16-63) Alkaline Phosphatase 109 U/L (46-116) Creatine Kinase 103 U/L (39-308) Creatine Kinase MB (Mass) 2.7 ng/mL (0.0-3.6) Creatine Kinase MB Relative Index 2.6 % (0-4) Troponin I Quantitative < 0.017 ng/mL (0.000-0.055) Total Protein 7.2 g/dL (6.4-8.2) Albumin 3.6 g/dL (3.4-5.0) 2.9 g/dL (3.4-5.0) Albumin/Globulin Ratio 1.0 (1.0-1.7) Lipase 164 U/L (73-393) Phosphorus Level 2.5 mg/dL (2.6-4.7) Laboratory Tests Test 02/22/18 06:04 White Blood Count 18.7 x10^3/uL (4.0-11.0) Red Blood Count 5.18 x10^6/uL (4.30-5.70) Hemoglobin 16.2 g/dL (13.0-17.5) Hematocrit 46.3 % (39.0-53.0) Mean Corpuscular Volume 89 fL (79-100) Mean Corpuscular Hemoglobin 31 pg (25-35) Mean Corpuscular Hemoglobin Concent 35 g/dL (31-37) Red Cell Distribution Width 13.5 % (11.5-14.5) Platelet Count 173 x10^3/uL (140-400) Neutrophils (%) (Auto) 92 % (31-73) Lymphocytes (%) (Auto) 4 % (24-48) Monocytes (%) (Auto) 4 % (0-9) Eosinophils (%) (Auto) 0 % (0-3) Basophils (%) (Auto) 0 % (0-3) Neutrophils # (Auto) 17.2 x10^3uL (1.8-7.7) Lymphocytes # (Auto) 0.8 x10^3/uL (1.0-4.8) Monocytes # (Auto) 0.7 x10^3/uL (0.0-1.1) Eosinophils # (Auto) 0.0 x10^3/uL (0.0-0.7) Basophils # (Auto) 0.0 x10^3/uL (0.0-0.2) Sodium Level 140 mmol/L (136-145) Potassium Level 4.8 mmol/L (3.5-5.1) Chloride Level 107 mmol/L (98-107) Carbon Dioxide Level 25 mmol/L (21-32) Anion Gap 8 (6-14) Blood Urea Nitrogen 32 mg/dL (8-26) Creatinine 2.0 mg/dL (0.7-1.3) Estimated GFR (Cockcroft-Gault) 33.6 Glucose Level 140 mg/dL (70-99) Calcium Level 10.4 mg/dL (8.5-10.1) Phosphorus Level 2.5 mg/dL (2.6-4.7) Albumin 2.9 g/dL (3.4-5.0) Review All relevant outside records, renal labs, imaging studies, telemetry/EKG's were reviewed. Images Images CT scan-- 1. 6 mm obstructive proximal right ureteral calculus with moderate upstream hydroureteronephrosis. 2. Mild right perinephric stranding, likely reactive to the stone, though ascending urinary tract infection is not excluded. 3. bilateral nonobstructive nephrolithiasis. 4. Large urinary bladder calculi. 5. ureteral colic 6. Chronic urinary retention STU CHACON MD Feb 22, 2018 14:20
[2018-02-22 15:00] VITALS: BP 112/64
[2018-02-22 19:00] VITALS: BP 117/69
[2018-02-22] MEDS ORDERED: ZOLPIDEM 5 MG TABLET. PO ONE (20:30)
[2018-02-22] MEDS: LACTOBACILLUS RHAMNOSUS GG 1 CAPSULE. PO SCH (21:08)
[2018-02-22 23:00] VITALS: BP 109/74
[2018-02-23 03:00] VITALS: BP 115/65
[2018-02-23 07:00] VITALS: BP 128/77
[2018-02-23] MEDS: TAMSULOSIN 0.4 MG CAP.ER.24H. PO SCH (09:17)
[2018-02-23] MEDS: LACTOBACILLUS RHAMNOSUS GG 1 CAPSULE. PO SCH (09:17)
[2018-02-23] MEDS: CIPROFLOXACIN 400MG PREMIX 200 ML IV SCH (09:17)
[2018-02-23] MEDS: HYDROcodone/APAP 7.5/325MG 1 TAB TABLET PO PRN ×2 (09:24→13:25)
--- NOTE | 2018-02-23 09:58 | PDOC ---
PROGRESS NOTES Chief Complaint Chief Complaint Past Medical History Cardiovascular: HTN Pulmonary: Other CENTRAL NERVOUS SYSTEM: Other GI: GERD Heme/Onc: No pertinent hx Hepatobiliary: No pertinent hx Psych: No pertinent hx Musculoskeletal: Osteoarthritis Rheumatologic: No pertinent hx Infectious disease: No pertinent hx Renal/: Benign prostatic enlarg., Other Endocrine: No pertinent hx Past Surgical History Past Surgical History: Other Family History Family History: No Significant, High Cholestrol Social History <1 pack per day ALCOHOL: occassional Drugs: None Lives: with Family Domestic Violence: Neg History of Present Illness History of Present Illness Assessment/Plan Assessment/Plan impression 1. 6 mm obstructive proximal right ureteral calculus with moderate upstream hydroureteronephrosis. 2. Mild right perinephric stranding, likely reactive to the stone, though ascending urinary tract infection is not excluded. 3. bilateral nonobstructive nephrolithiasis. 4. Large urinary bladder calculi. 5. ureteral colic 6. Chronic urinary retention 7. NAOMIE plan urology FOLLOWING Nephrology following right ureteral stent placed iv pain control iv antibiotics advance diet inc oral fluid intake bmp in am Vitals Vitals Vital Signs Date Time Temp Pulse Resp B/P (MAP) Pulse Ox O2 Delivery O2 Flow Rate FiO2 02/23/18 09:24 Room Air 02/23/18 07:00 98.5 61 18 128/77 (94) 94 98.5 Physical Exam General: Alert, Oriented X3, Cooperative, No acute distress, mild distress Heart: Regular rate, Normal S1, No murmurs Lungs: Clear Abdomen: Normal bowel sounds, Soft Extremities: No clubbing, No cyanosis Skin: No significant lesion Assessment and Plan Assessmemt and Plan Problems Medical Problems: (1) Kidney stone Status: Acute (2) Pyelonephritis Status: Acute (3) UTI (urinary tract infection) Status: Acute Comment Review of Relevant I have reviewed the following items kayla (where applicable) has been applied. Labs Laboratory Tests Test 02/21/18 12:45 02/21/18 13:15 02/22/18 06:04 Urine Collection Type Unknown Urine Color Yellow Urine Clarity Cloudy Urine pH 7.5 Urine Specific [place] 1.015 Urine Protein 100 mg/dL (NEG-TRACE) Urine Glucose (UA) Negative mg/dL (NEG) Urine Ketones (Stick) Negative mg/dL (NEG) Urine Blood Large (NEG) Urine Nitrite Positive (NEG) Urine Bilirubin Negative (NEG) Urine Urobilinogen Dipstick 0.2 mg/dL (0.2 mg/dL) Urine Leukocyte Esterase Large (NEG) Urine RBC >40 /HPF (0-2) Urine WBC Tntc /HPF (0-4) Urine Bacteria Many /HPF (0-FEW) White Blood Count 13.4 x10^3/uL (4.0-11.0) 18.7 x10^3/uL (4.0-11.0) Red Blood Count 5.73 x10^6/uL (4.30-5.70) 5.18 x10^6/uL (4.30-5.70) Hemoglobin 17.7 g/dL (13.0-17.5) 16.2 g/dL (13.0-17.5) Hematocrit 51.0 % (39.0-53.0) 46.3 % (39.0-53.0) Mean Corpuscular Volume 89 fL (79-100) 89 fL (79-100) Mean Corpuscular Hemoglobin 31 pg (25-35) 31 pg (25-35) Mean Corpuscular Hemoglobin Concent 35 g/dL (31-37) 35 g/dL (31-37) Red Cell Distribution Width 13.4 % (11.5-14.5) 13.5 % (11.5-14.5) Platelet Count 171 x10^3/uL (140-400) 173 x10^3/uL (140-400) Neutrophils (%) (Auto) 87 % (31-73) 92 % (31-73) Lymphocytes (%) (Auto) 8 % (24-48) 4 % (24-48) Monocytes (%) (Auto) 5 % (0-9) 4 % (0-9) Eosinophils (%) (Auto) 0 % (0-3) 0 % (0-3) Basophils (%) (Auto) 0 % (0-3) 0 % (0-3) Neutrophils # (Auto) 11.6 x10^3uL (1.8-7.7) 17.2 x10^3uL (1.8-7.7) Lymphocytes # (Auto) 1.0 x10^3/uL (1.0-4.8) 0.8 x10^3/uL (1.0-4.8) Monocytes # (Auto) 0.7 x10^3/uL (0.0-1.1) 0.7 x10^3/uL (0.0-1.1) Eosinophils # (Auto) 0.0 x10^3/uL (0.0-0.7) 0.0 x10^3/uL (0.0-0.7) Basophils # (Auto) 0.1 x10^3/uL (0.0-0.2) 0.0 x10^3/uL (0.0-0.2) Segmented Neutrophils % 85 % (35-66) Band Neutrophils % 3 % (0-9) Lymphocytes % 8 % (24-48) Monocytes % 4 % (0-10) Platelet Estimate Adequate (ADEQUATE) Sodium Level 142 mmol/L (136-145) 140 mmol/L (136-145) Potassium Level 4.8 mmol/L (3.5-5.1) 4.8 mmol/L (3.5-5.1) Chloride Level 107 mmol/L (98-107) 107 mmol/L (98-107) Carbon Dioxide Level 22 mmol/L (21-32) 25 mmol/L (21-32) Anion Gap 13 (6-14) 8 (6-14) Blood Urea Nitrogen 31 mg/dL (8-26) 32 mg/dL (8-26) Creatinine 2.1 mg/dL (0.7-1.3) 2.0 mg/dL (0.7-1.3) Estimated GFR (Cockcroft-Gault) 31.8 33.6 BUN/Creatinine Ratio 15 (6-20) Glucose Level 122 mg/dL (70-99) 140 mg/dL (70-99) Calcium Level 10.9 mg/dL (8.5-10.1) 10.4 mg/dL (8.5-10.1) Total Bilirubin 0.7 mg/dL (0.2-1.0) Aspartate Amino Transf (AST/SGOT) 17 U/L (15-37) Alanine Aminotransferase (ALT/SGPT) 27 U/L (16-63) Alkaline Phosphatase 109 U/L (46-116) Creatine Kinase 103 U/L (39-308) Creatine Kinase MB (Mass) 2.7 ng/mL (0.0-3.6) Creatine Kinase MB Relative Index 2.6 % (0-4) Troponin I Quantitative < 0.017 ng/mL (0.000-0.055) Total Protein 7.2 g/dL (6.4-8.2) Albumin 3.6 g/dL (3.4-5.0) 2.9 g/dL (3.4-5.0) Albumin/Globulin Ratio 1.0 (1.0-1.7) Lipase 164 U/L (73-393) Phosphorus Level 2.5 mg/dL (2.6-4.7) Medications Current Medications Sodium Chloride 1,000 ml @ 1,000 mls/hr Q1H IV Last administered on 02/21/18at 13:20; Start 02/21/18 at 12:46; Stop 02/21/18 at 13:45; Status DC Ketorolac Tromethamine (Toradol 30mg Vial) 30 mg 1X ONCE IV Last administered on 02/21/18at 13:21; Start 02/21/18 at 13:00; Stop 02/21/18 at 13:01; Status DC Ondansetron HCl (Zofran) 4 mg 1X ONCE IV Last administered on 02/21/18at 13:20 ; Start 02/21/18 at 13:30; Stop 02/21/18 at 13:31; Status DC Ceftriaxone Sodium 50 ml @ 100 mls/hr 1X ONCE IV ; Start 02/21/18 at 14:00; Stop 02/21/18 at 14:29; Status UNV Ceftriaxone Sodium (Rocephin) 1 gm 1X ONCE IVP Last administered on 02/21/18at 14:13; Start 02/21/18 at 14:15; Stop 02/21/18 at 14:16; Status DC Hydromorphone HCl (Dilaudid) 1 mg 1X ONCE IV Last administered on 02/21/18at 15 :47; Start 02/21/18 at 15:45; Stop 02/21/18 at 15:46; Status DC Ondansetron HCl (Zofran) 4 mg 1X ONCE IV Last administered on 02/21/18at 15:46 ; Start 02/21/18 at 15:45; Stop 02/21/18 at 15:46; Status DC Ondansetron HCl (Zofran) 4 mg PRN Q6HRS PRN IV NAUSEA/VOMITING; Start 02/21/18 at 15:45; Stop 02/21/18 at 18:00; Status DC Fentanyl Citrate (Fentanyl 2ml Vial) 25 mcg PRN Q5MIN PRN IV MILD PAIN; Start 02/21/18 at 15:45; Stop 02/21/18 at 18:00; Status DC Fentanyl Citrate (Fentanyl 2ml Vial) 50 mcg PRN Q5MIN PRN IV MODERATE TO SEVERE PAIN Last administered on 02/21/18at 19:39; Start 02/21/18 at 15:45; Stop 02/21/18 at 20:00; Status DC Morphine Sulfate (Morphine Sulfate) 1 mg PRN Q10MIN PRN IV SEVERE PAIN; Start 02/21/18 at 15:45; Stop 02/21/18 at 20:00; Status DC Ringer's Solution 1,000 ml @ 30 mls/hr Q24H IV Last administered on 02/21/18at 18:02; Start 02/21/18 at 15:43; Stop 02/22/18 at 03:42; Status DC Lidocaine HCl (Xylocaine-Mpf 1% 2ml Vial) 2 ml 1X PRN PRN ID IV START; Start 02/21/18 at 15:45; Stop 02/21/18 at 20:00; Status DC Hydromorphone HCl (Dilaudid) 0.5 mg PRN Q10MIN PRN IV SEV PAIN, Second choice; Start 02/21/18 at 15:45; Stop 02/21/18 at 18:00; Status DC Prochlorperazine Edisylate (Compazine) 5 mg PACU PRN PRN IV NAUSEA, MRX1; Start 02/21/18 at 15:45; Stop 02/21/18 at 18:00; Status DC Iohexol (Omnipaque 300 Mg/ml) 100 ml STK-MED ONCE .ROUTE ; Start 02/21/18 at 16: 02; Stop 02/21/18 at 16:03; Status DC Lidocaine HCl (Glydo (Lidocaine) Jelly) 6 josue STK-MED ONCE .ROUTE ; Start at 16:02; Stop 02/21/18 at 16:03; Status DC Ciprofloxacin/ Dextrose 200 ml @ 200 mls/hr Q12HR IV Last administered on 02/23at 09:17; Start 02/22/18 at 09:00 Ciprofloxacin/ Dextrose 200 ml @ 200 mls/hr ONCE ONCE IV Last administered on 02/21/18at 18:15; Start 02/21/18 at 17:30; Stop 02/21/18 at 18:29; Status DC Tamsulosin HCl (Flomax) 0.4 mg DAILY PO Last administered on 02/23/18at 09:17; Start 02/22/18 at 09:00 Iohexol (Omnipaque 300 Mg/ml) 100 ml STK-MED ONCE .ROUTE ; Start 02/21/18 at 17: 43; Stop 02/21/18 at 17:44; Status DC Fentanyl Citrate (Fentanyl 2ml Vial) 100 mcg STK-MED ONCE .ROUTE ; Start at 17:43; Stop 02/21/18 at 17:44; Status DC Lidocaine HCl (Glydo (Lidocaine) Jelly) 6 josue STK-MED ONCE .ROUTE ; Start at 17:43; Stop 02/21/18 at 17:44; Status Cancel Lidocaine HCl (Glydo (Lidocaine) Jelly) 6 josue STK-MED ONCE .ROUTE ; Start at 17:43; Stop 02/21/18 at 17:44; Status DC Dexamethasone Sodium Phosphate (Decadron) 20 mg STK-MED ONCE .ROUTE ; Start 02/21/18 at 17:44; Stop 02/21/18 at 17:45; Status DC Propofol 20 ml @ As Directed STK-MED ONCE IV ; Start 02/21/18 at 17:44; Stop at 17:45; Status DC Ondansetron HCl (Zofran) 4 mg STK-MED ONCE .ROUTE ; Start 02/21/18 at 17:44; Stop 02/21/18 at 17:45; Status DC Phenylephrine HCl (PHENYLEPHRINE in 0.9% NACL PF) 1 mg STK-MED ONCE IV ; Start 02/21/18 at 18:23; Stop 02/21/18 at 18:24; Status DC Iohexol (Omnipaque 300 Mg/ml) 100 ml STK-MED ONCE IV Last administered on at 18:35; Start 02/21/18 at 18:35; Stop 02/21/18 at 18:38; Status DC Desflurane (Suprane) 60 ml STK-MED ONCE IH ; Start 02/21/18 at 18:48; Stop 02/21 at 18:49; Status DC Lactobacillus Rhamnosus (Culturelle) 1 cap BID PO Last administered on at 09:17; Start 02/22/18 at 21:00 Acetaminophen/ Hydrocodone Bitart (Lortab 7.5/325) 1 tab PRN Q3HRS PRN PO MODERATE PAIN Last administered on 02/23/18at 09:24; Start 02/22/18 at 11:00 Fentanyl Citrate (Fentanyl 2ml Vial) 50 mcg PRN Q2HR PRN IV SEVERE PAIN Last administered on 02/23/18at 06:04; Start 02/22/18 at 11:00 Fentanyl Citrate (Fentanyl 2ml Vial) 25 mcg PRN Q2HR PRN IV MODERATE PAIN; Start 02/22/18 at 11:00 Zolpidem Tartrate (Ambien) 5 mg 1X ONCE PO Last administered on 02/22/18at 21: 08; Start 02/22/18 at 20:30; Stop 02/22/18 at 20:31; Status DC Active Scripts Active Flomax (Tamsulosin Hcl) 0.4 Mg Cap.er.24h 1 Cap PO DAILY Cipro (Ciprofloxacin Hcl) 500 Mg Tablet 500 Mg PO BID 5 Days Reported Aspirin 325 Mg Tablet 1 Tab PO PRN PRN Vitals/I & O Vital Sign - Last 24 Hours 02/22/18 02/22/18 02/22/18 02/22/18 11:00 11:05 12:05 15:00 Temp 98.8 99.5 98.8 99.5 Pulse 61 69 Resp 18 16 18 B/P (MAP) 110/55 (73) 112/64 (80) Pulse Ox 96 93 O2 Delivery Room Air Room Air Room Air Room Air 02/22/18 02/22/18 02/22/18 02/23/18 19:00 19:50 23:00 03:00 Temp 97.9 99.0 99.7 97.9 99.0 99.7 Pulse 79 83 80 Resp 16 16 18 B/P (MAP) 117/69 (85) 109/74 (86) 115/65 (82) Pulse Ox 93 93 93 O2 Delivery Room Air Room Air Room Air Room Air 02/23/18 02/23/18 02/23/18 02/23/18 06:04 06:34 07:00 09:24 Temp 98.5 98.5 Pulse 61 Resp 20 20 18 B/P (MAP) 128/77 (94) Pulse Ox 94 O2 Delivery Room Air Room Air Room Air Room Air Intake and Output 02/22/18 02/22/18 02/23/18 15:00 23:00 07:00 Intake Total 240 ml 340 ml Output Total 475 ml Balance -475 ml 240 ml 340 ml JORGE A BLANKENSHIP MD Feb 23, 2018 09:58
[2018-02-23 11:00] VITALS: BP 111/69
[2018-02-23] MEDS ORDERED: DOCUSATE SODIUM 100 MG CAPSULE. PO PRN (11:30)
[2018-02-23 13:07] LABS: HEMATOCRIT 47.2 % (39.0-53.0); HEMOGLOBIN 16.2 g/dL (13.0-17.5); RED BLOOD COUNT 5.24 x10^6/uL (4.30-5.70); RED CELL DISTRIBUTION WIDTH 13.6 % (11.5-14.5)
--- NOTE | 2018-02-23 14:24 | PDOC ---
SUBJECTIVE ROS Follow-up for acute renal failure in the setting of obstructive uropathy on the right side with stone Patient is feeling much better today. He does have some discomfort in his right flank mostly when he gets up out of bed. CVS: no Orthopnea, no CP RESP: no SOB, no DOS SANTOS GI: no Nausea, no Vomiting : n Dysuria, on Urgency OBJECTIVE Vital Signs Vital Signs Date Time Temp Pulse Resp B/P (MAP) Pulse Ox O2 Delivery O2 Flow Rate FiO2 02/23/18 13:25 Room Air 02/23/18 11:00 98.7 82 18 111/69 (83) 97 98.7 I & 0 Intake and Output 02/23/18 07:00 Intake Total 580 ml Output Total 475 ml Balance 105 ml Intake Oral 580 ml Output Urine Total 475 ml PHYSICAL EXAM Physical Exam GEN: Awake, Oriented x 3, In no distress EYES: Vision Unchanged, Conjunctiva Normal EN: No EN Drainage, Mucous Membranes moist NECK: no JVD, no JVP, Supple, no Thyromegaly CVS: S1S2, no Murmur, No Gallop, No Rub,non Edema RESP: no Rales, no Rhonchi,no Acc. Muscle Use GI: BS + ve, NO Bruit, Non Tender, Non Distended : no CVA tenderness, no Suprapubic Tenderness DIAGNOSIS/ASSESSMENT Assessment & Plan Acute renal failure: Resume of the from obstructive uropathy and right-sided kidney stone. I anticipate this to improve gradually. No mention of significantly purulent urine was noted on the op report. However pyelonephritis associated with the same cannot be ruled out. Urine has not been cultured. He remains on antibiotics per urology recommendations Flank pain: We'll request urology to assess for precise etiology. This appears to be only when he gets up out of bed. This does not occur at rest and there is no CVA tenderness on exam Nephrolithiasis: Await stone analysis. Hypercalcemia: Cannot rule out dehydration: We'll check PTH vitamin D. Phosphorus does suggest possibility of hyperparathyroidism Low phosphorus: Replace as needed. By mouth intake was marginal over the last few days. This appears to be improving currently. Discussed Plan of Care with patient at bedside extensively COMMENT/RELEVANT DATA Meds Current Medications Medications (Trade) Dose Ordered Sig/Katty Start Time Stop Time Status Last Admin Dose Admin Acetaminophen/ Hydrocodone Bitart (Lortab 7.5/325) 1 tab PRN Q3HRS PRN 02/22/18 11:00 02/23/18 13:25 1 TAB Ceftriaxone Sodium (Rocephin) 1 gm 1X ONCE 02/21/18 14:15 02/21/18 14:16 DC 02/21/18 14:13 1 GM Ciprofloxacin/ Dextrose 200 ml @ 200 mls/hr ONCE ONCE 02/21/18 17:30 02/21/18 18:29 DC 02/21/18 18:15 200 MLS/HR Desflurane (Suprane) 60 ml STK-MED ONCE 02/21/18 18:48 02/21/18 18:49 DC Dexamethasone Sodium Phosphate (Decadron) 20 mg STK-MED ONCE 02/21/18 17:44 02/21/18 17:45 DC Docusate Sodium (Colace) 100 mg PRN DAILY PRN 02/23/18 11:30 02/23/18 13:15 100 MG Fentanyl Citrate (Fentanyl 2ml Vial) 25 mcg PRN Q2HR PRN 02/22/18 11:00 Hydromorphone HCl (Dilaudid) 0.5 mg PRN Q10MIN PRN 02/21/18 15:45 02/21/18 18:00 DC Iohexol (Omnipaque 300 Mg/ml) 100 ml STK-MED ONCE 02/21/18 18:35 02/21/18 18:38 DC 02/21/18 18:35 10 ML Ketorolac Tromethamine (Toradol 30mg Vial) 30 mg 1X ONCE 02/21/18 13:00 02/21/18 13:01 DC 02/21/18 13:21 30 MG Lactobacillus Rhamnosus (Culturelle) 1 cap BID 02/22/18 21:00 02/23/18 09:17 1 CAP Lidocaine HCl (Glydo (Lidocaine) Jelly) 6 josue STK-MED ONCE 02/21/18 17:43 02/21/18 17:44 DC Lidocaine HCl (Xylocaine-Mpf 1% 2ml Vial) 2 ml 1X PRN PRN 02/21/18 15:45 02/21/18 20:00 DC Morphine Sulfate (Morphine Sulfate) 1 mg PRN Q10MIN PRN 02/21/18 15:45 02/21/18 20:00 DC Ondansetron HCl (Zofran) 4 mg STK-MED ONCE 02/21/18 17:44 02/21/18 17:45 DC Phenylephrine HCl (PHENYLEPHRINE in 0.9% NACL PF) 1 mg STK-MED ONCE 02/21/18 18:23 02/21/18 18:24 DC Prochlorperazine Edisylate (Compazine) 5 mg PACU PRN PRN 02/21/18 15:45 02/21/18 18:00 DC Propofol 20 ml @ As Directed STK-MED ONCE 02/21/18 17:44 02/21/18 17:45 DC Ringer's Solution 1,000 ml @ 30 mls/hr Q24H 02/21/18 15:43 02/22/18 03:42 DC 02/21/18 18:02 30 MLS/HR Sodium Chloride 1,000 ml @ 1,000 mls/hr Q1H 02/21/18 12:46 02/21/18 13:45 DC 02/21/18 13:20 1,000 MLS/HR Tamsulosin HCl (Flomax) 0.4 mg DAILY 02/22/18 09:00 02/23/18 09:17 0.4 MG Zolpidem Tartrate (Ambien) 5 mg 1X ONCE 02/22/18 20:30 02/22/18 20:31 DC 02/22/18 21:08 5 MG Lab Laboratory Tests Test 02/23/18 12:00 White Blood Count 12.0 x10^3/uL (4.0-11.0) Red Blood Count 5.24 x10^6/uL (4.30-5.70) Hemoglobin 16.2 g/dL (13.0-17.5) Hematocrit 47.2 % (39.0-53.0) Mean Corpuscular Volume 90 fL (79-100) Mean Corpuscular Hemoglobin 31 pg (25-35) Mean Corpuscular Hemoglobin Concent 34 g/dL (31-37) Red Cell Distribution Width 13.6 % (11.5-14.5) Platelet Count 167 x10^3/uL (140-400) Results All relevant outside records, renal labs, imaging studies, telemetry/EKG's were reviewed. Other 1. 6 mm obstructive proximal right ureteral calculus with moderate upstream hydroureteronephrosis. 2. Mild right perinephric stranding, likely reactive to the stone, though ascending urinary tract infection is not excluded. 3. Additional bilateral nonobstructive nephrolithiasis. 4. Large urinary bladder calculi. 5. Moderate prostate enlargement. Correlation with PSA is recommended. 6. Moderate circumferential urinary bladder wall thickening, likely due to chronic partial outflow compromise from prostate enlargement. PHILLIP FUENTES MD Feb 23, 2018 14:24
--- NOTE | 2018-02-23 14:44 | PDOC ---
PROGRESS NOTE SUBJECTIVE: HPI: Feeling well. Afebrile. Mild right flank pain while urinating. Problems: Problems Medical Problems: (1) Kidney stone Status: Acute (2) Pyelonephritis Status: Acute (3) UTI (urinary tract infection) Status: Acute OBJECTIVE: Vital Signs: Vital Signs Date Time Temp Pulse Resp B/P (MAP) Pulse Ox O2 Delivery O2 Flow Rate FiO2 02/23/18 13:25 Room Air 02/23/18 11:30 Room Air 02/23/18 11:00 98.7 82 18 111/69 (83) 97 Room Air 98.7 02/23/18 10:24 Room Air 02/23/18 09:24 Room Air 02/23/18 07:00 98.5 61 18 128/77 (94) 94 Room Air 98.5 02/23/18 06:34 20 Room Air 02/23/18 06:04 20 Room Air 02/23/18 03:00 99.7 80 18 115/65 (82) 93 Room Air 99.7 02/22/18 23:00 99.0 83 16 109/74 (86) 93 Room Air 99.0 02/22/18 19:50 Room Air 02/22/18 19:00 97.9 79 16 117/69 (85) 93 Room Air 97.9 02/22/18 15:00 99.5 69 18 112/64 (80) 93 Room Air 99.5 I & O Intake and Output 02/23/18 07:00 Intake Total 580 ml Output Total 475 ml Balance 105 ml Intake Oral 580 ml Output Urine Total 475 ml PHYSICAL EXAM: Physical Exam: NAD AAO NLB on RA Skin warm and pink ROS: ROS: Denies fevers or chills LABS: Laboratory Tests Test 02/21/18 12:45 02/21/18 13:15 02/22/18 06:04 02/23/18 12:00 Urine Collection Type Unknown Urine Color Yellow Urine Clarity Cloudy Urine pH 7.5 Urine Specific [place] 1.015 Urine Protein 100 mg/dL (NEG-TRACE) Urine Glucose (UA) Negative mg/dL (NEG) Urine Ketones (Stick) Negative mg/dL (NEG) Urine Blood Large (NEG) Urine Nitrite Positive (NEG) Urine Bilirubin Negative (NEG) Urine Urobilinogen Dipstick 0.2 mg/dL (0.2 mg/dL) Urine Leukocyte Esterase Large (NEG) Urine RBC >40 /HPF (0-2) Urine WBC Tntc /HPF (0-4) Urine Bacteria Many /HPF (0-FEW) White Blood Count 13.4 x10^3/uL (4.0-11.0) 18.7 x10^3/uL (4.0-11.0) 12.0 x10^3/uL (4.0-11.0) Red Blood Count 5.73 x10^6/uL (4.30-5.70) 5.18 x10^6/uL (4.30-5.70) 5.24 x10^6/uL (4.30-5.70) Hemoglobin 17.7 g/dL (13.0-17.5) 16.2 g/dL (13.0-17.5) 16.2 g/dL (13.0-17.5) Hematocrit 51.0 % (39.0-53.0) 46.3 % (39.0-53.0) 47.2 % (39.0-53.0) Mean Corpuscular Volume 89 fL (79-100) 89 fL (79-100) 90 fL (79-100) Mean Corpuscular Hemoglobin 31 pg (25-35) 31 pg (25-35) 31 pg (25-35) Mean Corpuscular Hemoglobin Concent 35 g/dL (31-37) 35 g/dL (31-37) 34 g/dL (31-37) Red Cell Distribution Width 13.4 % (11.5-14.5) 13.5 % (11.5-14.5) 13.6 % (11.5-14.5) Platelet Count 171 x10^3/uL (140-400) 173 x10^3/uL (140-400) 167 x10^3/uL (140-400) Neutrophils (%) (Auto) 87 % (31-73) 92 % (31-73) Lymphocytes (%) (Auto) 8 % (24-48) 4 % (24-48) Monocytes (%) (Auto) 5 % (0-9) 4 % (0-9) Eosinophils (%) (Auto) 0 % (0-3) 0 % (0-3) Basophils (%) (Auto) 0 % (0-3) 0 % (0-3) Neutrophils # (Auto) 11.6 x10^3uL (1.8-7.7) 17.2 x10^3uL (1.8-7.7) Lymphocytes # (Auto) 1.0 x10^3/uL (1.0-4.8) 0.8 x10^3/uL (1.0-4.8) Monocytes # (Auto) 0.7 x10^3/uL (0.0-1.1) 0.7 x10^3/uL (0.0-1.1) Eosinophils # (Auto) 0.0 x10^3/uL (0.0-0.7) 0.0 x10^3/uL (0.0-0.7) Basophils # (Auto) 0.1 x10^3/uL (0.0-0.2) 0.0 x10^3/uL (0.0-0.2) Segmented Neutrophils % 85 % (35-66) Band Neutrophils % 3 % (0-9) Lymphocytes % 8 % (24-48) Monocytes % 4 % (0-10) Platelet Estimate Adequate (ADEQUATE) Sodium Level 142 mmol/L (136-145) 140 mmol/L (136-145) Potassium Level 4.8 mmol/L (3.5-5.1) 4.8 mmol/L (3.5-5.1) Chloride Level 107 mmol/L (98-107) 107 mmol/L (98-107) Carbon Dioxide Level 22 mmol/L (21-32) 25 mmol/L (21-32) Anion Gap 13 (6-14) 8 (6-14) Blood Urea Nitrogen 31 mg/dL (8-26) 32 mg/dL (8-26) Creatinine 2.1 mg/dL (0.7-1.3) 2.0 mg/dL (0.7-1.3) Estimated GFR (Cockcroft-Gault) 31.8 33.6 BUN/Creatinine Ratio 15 (6-20) Glucose Level 122 mg/dL (70-99) 140 mg/dL (70-99) Calcium Level 10.9 mg/dL (8.5-10.1) 10.4 mg/dL (8.5-10.1) Total Bilirubin 0.7 mg/dL (0.2-1.0) Aspartate Amino Transf (AST/SGOT) 17 U/L (15-37) Alanine Aminotransferase (ALT/SGPT) 27 U/L (16-63) Alkaline Phosphatase 109 U/L (46-116) Creatine Kinase 103 U/L (39-308) Creatine Kinase MB (Mass) 2.7 ng/mL (0.0-3.6) Creatine Kinase MB Relative Index 2.6 % (0-4) Troponin I Quantitative < 0.017 ng/mL (0.000-0.055) Total Protein 7.2 g/dL (6.4-8.2) Albumin 3.6 g/dL (3.4-5.0) 2.9 g/dL (3.4-5.0) Albumin/Globulin Ratio 1.0 (1.0-1.7) Lipase 164 U/L (73-393) Phosphorus Level 2.5 mg/dL (2.6-4.7) ASSESSMENT & PLAN 68 yo M presents with sepsis and obstructing ureteral stone now POD 2 s/p ureteral stent placement. Leukocytosis has improved and afebrile. Patient would like to go home. OK to d/c home with PO abx Asked patient to call Dr. Khan's office on Sunday to arrange definitive stone surgery in roughly 2 weeks Problem List: Problems Medical Problems: (1) Kidney stone Status: Acute (2) Pyelonephritis Status: Acute (3) UTI (urinary tract infection) Status: Acute DIAZ WERNER MD Feb 23, 2018 14:44
[2018-02-23] MEDS ORDERED: CIPR500T94 PO (14:52)
[2018-02-23] MEDS ORDERED: CIPROFLOXACIN HCL 250 MG TABLET. PO SCH (21:00)
== END 2018-02-23 16:02 | disposition home or self-care (01) | DRG 661 ==
LOC: ER 12:17 → ED HOLD 15:40 → 4 NORTH 19:29
PROVIDERS: ADMIT Family Medicine; ATTEND Family Medicine
PROC: BT1D1ZZ Fluoroscopy of Right Kidney, Ureter and Bladder using Low Osmolar Contrast (ICD-10-PCS; 2018-02-21)
PROC: 0T768DZ Dilation of Right Ureter with Intraluminal Device, Via Natural or Artificial Opening Endoscopic (ICD-10-PCS; principal; 2018-02-21 17:45)
DX: N13.6 Pyonephrosis (principal); N17.9 Acute kidney failure, unspecified; F17.210 Nicotine dependence, cigarettes, uncomplicated; I10 Essential (primary) hypertension; K21.9 Gastro-esophageal reflux disease without esophagitis; N21.0 Calculus in bladder; N40.0 Benign prostatic hyperplasia without lower urinary tract symptoms; M19.90 Unspecified osteoarthritis, unspecified site; N26.1 Atrophy of kidney (terminal); N31.2 Flaccid neuropathic bladder, not elsewhere classified; N40.1 Benign prostatic hyperplasia with lower urinary tract symptoms; Z87.442 Personal history of urinary calculi; Z79.899 Other long term (current) drug therapy
CPT/HCPCS: 36415; 74176; 76001; 80053; 80069; 81001; 82553; 83690; 84484; 85007; 85025; 85027; 87086; 93005; 96361; 96374; 96375; 96376; A7015; C1769; C2617; J0696; J0744; J1100; J1170; J1885; J2370; J2405; J2704; J3010; J7030; J7120; Q9967; 99285-25

== ENCOUNTER 2018-04-04 11:41 | Observation (INO) | payer BC, MEDICARE ==
[~2018-04-04] VITALS: Ht 190.5 cm; Wt 104.3 kg
[2018-04-04] VITALS (9 sets, daily range): BP systolic 119–156; BP diastolic 66–87
[~2018-04-04 11:41] MED LIST changes: +ACET500T33 PO; +HYDROmorphone 2 MG/ML VIAL IV PRN; +IV RINGERS,LACTATED 1000ML 1,000 ML IV SCH; +LIDOCAINE 1% PF 2 ML VIAL. ID PRN; +MORPHINE SULFATE 2 MG/ML VIAL. IV PRN; +ONDANSETRON PF 4 MG/2 ML VIAL. IV PRN; +PROCHLORPERAZINE 10 MG/2 ML VIAL. IV PRN; +fentaNYL PF VIAL 100 MCG/2 ML VIAL IV PRN
[2018-04-04] MEDS ORDERED: DEXAMETHASONE SOD PHOS 20 MG/5 ML VIAL. ONE ×2 (12:11→12:53)
[2018-04-04] MEDS ORDERED: ONDANSETRON PF 4 MG/2 ML VIAL. ONE ×2 (12:11→12:53)
[2018-04-04] MEDS ORDERED: LIDOCAINE 2% PF Vial for OR 5 ML VIAL. ONE ×2 (12:11→12:53)
[2018-04-04] MEDS ORDERED: PROPOFOL 20 ML IV ONE ×2 (12:11→12:53)
[2018-04-04] MEDS ORDERED: IOHEXOL 300 MG/ML 100ML VIAL. ONE (12:32)
[2018-04-04] MEDS ORDERED: FAMOTIDINE 20 MG/2 ML VIAL ONE (12:53)
[2018-04-04] MEDS ORDERED: MIDAZOLAM HCL/PF 2 MG/2 ML VIAL. ONE (12:54)
[2018-04-04] MEDS ORDERED: fentaNYL PF VIAL 100 MCG/2 ML VIAL ONE (12:54)
[2018-04-04] MEDS ORDERED: ROCURONIUM 50 MG/5 ML VIAL. ONE (13:33)
[2018-04-04] MEDS ORDERED: PHENYLEPHRINE in 0.9% NACL PF 1 MG/10 ML SYRINGE. IV ONE (14:28)
[2018-04-04] MEDS ORDERED: ePHEDrine PF IN SALINE 50 MG/5 ML DISP.SYRIN IV ONE (14:39)
[2018-04-04] MEDS ORDERED: GLYCOPYRROLATE 1 MG/5 ML VIAL. ONE (15:31)
[2018-04-04] MEDS ORDERED: SEVOFLURANE 61 TO 120 MINUTES. IH ONE (15:32)
[2018-04-04] MEDS ORDERED: SEVOFLURANE > 120 MINUTES. IH ONE (17:06)
--- NOTE | 2018-04-04 17:29 | PDOC4 ---
OPERATIVE NOTE Date: Date: Feb 21, 2018 Pre-Op Diagnosis: Bladder stones, BPH, right ureteral stone Post-Op Diagnosis: same Procedure Performed: Cystoscopy, laser of bladder stones Greenlight laser of prostate Right diagnostic ureteroscopy Right retrograde pyelogram Surgeon: Kelsie Austin MD Anesthesia Type: general Blood Loss: 0 Specimans Obtained: bladder stones Findings: multiple large bladder stones BPH with obstruction. right hydronephrosis without stone identified Complications: none Operative Note: see dictation KELSIE AUSTIN MD Apr 04, 2018 17:29
[2018-04-04] MEDS ORDERED: ONDANSETRON PF 4 MG/2 ML VIAL. IV PRN (17:30)
[2018-04-04] MEDS ORDERED: PROCHLORPERAZINE 10 MG/2 ML VIAL. IV PRN (17:30)
[2018-04-04] MEDS ORDERED: HYDROcodone/APAP 5/325MG 1 TAB TABLET PO PRN ×2 (17:30)
[2018-04-04] MEDS ORDERED: 0.9 % SODIUM CHLORIDE 10 ML DISP.SYRIN. IV PRN (17:30)
[2018-04-04] MEDS ORDERED: MORPHINE SULFATE 4 MG/ML VIAL. IV PRN (17:30)
[2018-04-04] MEDS ORDERED: NALOXONE 0.4 MG/ML VIAL. IV PRN (17:30)
--- NOTE | 2018-04-04 18:13 | OP ---
DATE OF SURGERY: 04/04/2018 SURGEON: Severiano Austin MD. WAREHOUSE MAN: None. PREOPERATIVE DIAGNOSES: 1. Large bladder stones. 2. Benign prostatic hypertrophy with obstruction. 3. Right ureteral stone. POSTOPERATIVE DIAGNOSES: 1. Large bladder stones. 2. Benign prostatic hypertrophy with obstruction. 3. Right ureteral stone. PROCEDURES PERFORMED: 1. Laser of multiple large bladder stones. 2. Laser vaporization of the prostate. 3. Diagnostic right ureteroscopy. 4. Right retrograde pyelogram. ANESTHESIA TYPE: General. INDICATIONS FOR PROCEDURE: This is a 68-year-old male with the above diagnoses. After discussion of risks, benefits and alternatives, he agreed to the above procedure. Informed consent was obtained. DESCRIPTION OF PROCEDURE: The patient was taken to the operating room where general anesthesia was induced. He was placed in dorsal lithotomy position, sterilely prepped and draped. A timeout was performed. A rigid cystoscope was advanced through the urethra and into the bladder. Two large stones were noted in the bladder, one approximately 4 cm and the other between 2.5 and 3 cm. The stones were then vaporized into smaller pieces with a holmium laser. Due to the large size of the stones, this took over 1 hour and 40 minutes, twice as long as is typical for a large bladder stone. The stone fragments were then evacuated with an Ellik device. Next, the right ureteral stent was grasped and pulled out through the urethral meatus. A guidewire was placed through the stent and advanced up into the right kidney. A flexible ureteroscope was advanced over the wire. A right retrograde pyelogram was performed, which showed a significant right hydronephrosis. Each renal moshe was then closely inspected and no stones were identified. The scope was slowly withdrawn and the ureter was dilated in its entire length and no stones were identified. Next, the GreenLight laser fiber was introduced through the scope and the prostate was vaporized at a setting of 180 bautista and a total of 180,000 joules of energy was used. The bladder neck was preserved. Both ureteral orifices were uninjured. Hemostasis was excellent. The prostate was unobstructed at the end of the procedure and no significant bleeding noted. A Anthony catheter was placed and left in drainage. The patient was then awakened and taken to the recovery room in stable condition. BLOOD LOSS: None. COMPLICATIONS: None. SPECIMEN: Bladder stones. SEVERIANO AUSTIN MD DR: Gilles JOB#: [id number] / [id number]
--- NOTE | 2018-04-04 19:00 | NUR ---
ADMIT Pt arrived via bed from PACU. A/Ox4, room air. VSS. Frequent VS started at this time. Pt c/o pain, uncomfortable and burning at vargas insertion site. 10/26. IVF currently infusing. Full admission assessment completed at this time. 16F Vargas in place draining tran red urine. Discussed plan of care. Offered beverages and box lunch tray. Call light w/ in reach, bed in lowest, locked position. Will continue to monitor closely.
[2018-04-04] MEDS: IV RINGERS,LACTATED 1000ML 1,000 ML IV SCH (19:27)
[2018-04-04] MEDS: SENNOSIDES/DOCUSATE 8.6/50MG TABLET. PO SCH (20:55)
[2018-04-04] MEDS: ACETAMINOPHEN 325 MG TABLET. PO SCH (21:01)
[2018-04-05 03:00] VITALS: BP 109/61
[2018-04-05] MEDS: IV RINGERS,LACTATED 1000ML 1,000 ML IV SCH ×2 (05:24→14:00)
[2018-04-05 07:00] VITALS: BP 126/72
[2018-04-05] MEDS: ACETAMINOPHEN 325 MG TABLET. PO SCH ×2 (07:26→14:00)
--- NOTE | 2018-04-05 08:33 | PDOC ---
SUBJECTIVE Subjective Pt had a good night and is not in any pain. Catheter not bothering him. He is willing to try a voiding trial today before going home. OBJECTIVE Objective Physical Exam: General appearance: Alert and Oriented Head: Normocephalic, without obvious abnormality Eyes: conjunctivae/corneas clear. PERRL, EOM's intact. Fundi benign Lungs: Regular respirations, non labored breathing Abdomen: soft, non-tender. No masses, no organomegaly Pelvic: + circ phallus. Vargas catheter draining red tinged urine. Vargas catheter removed with no difficulty. Vital Signs Vital Signs Date Time Temp Pulse Resp B/P (MAP) Pulse Ox O2 Delivery O2 Flow Rate FiO2 04/05/18 03:00 98.3 68 14 109/61 (77) 95 Room Air 98.3 04/04/18 23:26 95 Room Air 04/04/18 22:30 91 95 04/04/18 22:24 94 Room Air 04/04/18 22:15 81 119/66 (83) 92 04/04/18 22:00 82 93 04/04/18 21:45 79 92 04/04/18 21:30 80 93 04/04/18 21:15 86 134/80 (98) 95 04/04/18 21:00 83 94 04/04/18 20:45 83 130/76 (94) 92 04/04/18 20:30 83 122/81 (95) 94 04/04/18 20:15 78 145/87 (106) 97 04/04/18 20:06 94 Room Air 04/04/18 20:00 70 156/83 (107) 94 04/04/18 19:45 73 149/87 (107) 94 04/04/18 19:30 77 95 04/04/18 19:26 94 Room Air 04/04/18 19:15 78 134/83 (100) 94 04/04/18 19:00 99.3 75 16 134/83 (100) 93 Room Air 99.3 04/04/18 19:00 Room Air 04/04/18 18:12 73 20 139/79 94 Bag Valve Mask 04/04/18 17:57 76 20 125/63 97 Simple Mask 10 04/04/18 17:42 76 20 109/69 97 Simple Mask 10 04/04/18 17:27 97.5 71 20 114/59 96 Simple Mask 10 97.5 04/04/18 17:27 97.2 78 20 136/78 95 Room Air 97.2 04/04/18 17:27 Mask 10 04/04/18 12:15 98.6 69 18 147/86 96 Room Air 98.6 I & O Intake and Output 04/05/18 07:01 Intake Total 3820 ml Output Total 950 ml Balance 2870 ml Intake Oral 870 ml IV Total 2950 ml Output Urine Total 950 ml PHYSICAL EXAM Physical Exam Physical Exam: General appearance: Alert and Oriented Head: Normocephalic, without obvious abnormality Eyes: conjunctivae/corneas clear. PERRL, EOM's intact. Fundi benign Lungs: Regular respirations, non labored breathing Abdomen: soft, non-tender. No masses, no organomegaly Pelvic: + circ phallus. Vargas catheter draining red tinged urine. Vargas catheter removed with no difficulty. ASSESSMENT/PLAN Assessment/Plan Pt is POD # 1: Cystoscopy, laser of bladder stones, Greenlight laser of prostate, Right diagnostic ureteroscopy, Right retrograde pyelogram per Dr. [facility] [place] [facility] [place] catheter removed this am by CULTURISTJanusz Nathan with no difficulty. Explained to patient that he has until 1-2 pm to void. Attempt to void around [id number] and then attempt to void every hour to hour and a half thereafter. CULTURIST will check patient later today between 1 and 2 pm to assess voiding trial. He has a follow up appointment with Niyah CARDENAS on 04/08 at 0930 am at [facility] location for voiding trial. UPDATE: Patient has been voiding but PVR is still 400- 430 times two per bladder scan Vargas catheter replaced and 450 cc of red tinged urine return noted into bag. Patient may discharge home today with vargas catheter in place. Nursing may provide extra bags and catheter supplies and teach catheter care prior to discharge. Return on Sunday as an outpatient for Voiding Trial. Problems: (1) BPH (benign prostatic hyperplasia) NIYAH NATHAN APRN Apr 05, 2018 08:33
[2018-04-05] MEDS: SENNOSIDES/DOCUSATE 8.6/50MG TABLET. PO SCH (08:38)
[2018-04-05 11:00] VITALS: BP 123/72
--- NOTE | 2018-04-05 11:05 | NUR ---
SW following for discharge planning. Chart reviewed, discussed with RN. RN advised no SW needs at this time and anticipates pt will discharge home today. SW will continue to follow.
--- NOTE | 2018-04-05 13:40 | DISCH ---
DISCHARGE INSTRUCTIONS Condition on Discharge Condition on Discharge: Stable Activity After Discharge Activity Instructions for Disc: Avoid exertion Lifting Instructions after Dis: No heavy lifting, No pulling or pushing Driving Instructions after Dis: Do not drive today, Other, see below Weight Bearing Status after Di: As tolerated Diet after Discharge Diet after Discharge: Regular Checks after Discharge Checks after discharge: Check blood press - daily Contacting the DRMaria Isabel after DC Call your doctor for: Concerns you may have Follow-Up Follow up with: Niyah Nathan [facility] AT [phone] Treatment/Equipment after DC Comment: Catheter in place. NIYAH NATHAN APRN Apr 05, 2018 13:40
[2018-04-05] MEDS ORDERED: HYDR-3164 PO (13:58)
--- NOTE | 2018-04-05 15:01 | NUR ---
Discharge instructions reviewed with patient, verbalized understanding. Pt was escorted down via ambulation by Collin MOCTEZUMA and accompanied by his sister Rowena.
--- NOTE | 2018-04-08 10:07 | PATHOLOGY ---
[facility] Accession Number: [id number] . 01 Material submitted: . BLADDER STONES . 01 Clinical history: . Bladder stones . 02 Diagnosis: Calculi, urinary bladder, removal: - Calculi/ urolithiasis (gross diagnosis only). - Specimen forwarded for stone analysis, results to be reported in an addendum when available. LBQ/04/05/2018 . 02 Electronically signed: . Sunny Gómez MD, Pathologist NPI- [id number] . 01 Gross description: . The specimen is received in formalin, labeled "Pawel Zacarias, bladder stones", are multiple dixon-yellow calculi and its fragments measuring 4.0 x 3.5 x 1.4 cm in aggregate. Gross only. (SWS; 04/05/2018) SHS/SHS . 02 Pathologist provided ICD-10: N21.0 . 02 CPT . 841699 Specimen Comment: A courtesy copy of this report has been sent to Specimen Comment: [phone]. Specimen Comment: Report sent to Performed at: 01 [facility] [address], [place] [id number] MD Paulo Andrews MD Phone: [phone] Performed at: 02 [facility] [address] [place], [place] [id number] MD Sunny Gómez MD Phone: [phone]
== END 2018-04-05 15:00 | disposition home or self-care (01) ==
LOC: SURG 11:41 → 4 NORTH 18:31
PROVIDERS: ADMIT Urology; ATTEND Urology
DX: N13.2 Hydronephrosis with renal and ureteral calculous obstruction (principal); N40.1 Benign prostatic hyperplasia with lower urinary tract symptoms; N21.0 Calculus in bladder
CPT/HCPCS: 52648; 76000; 88300; 96374; A7015; C1769; G0378; G0379; J0696; J1100; J2001; J2250; J2270; J2370; J2405; J2704; J3010; J3490; J7120; Q9967

== ENCOUNTER 2018-07-26 06:00 | Inpatient (IN) | payer BC, MEDICARE ==
[~2018-07-26] VITALS: Ht 190.5 cm; Wt 103.4 kg
[2018-07-26] VITALS (14 sets, daily range): BP systolic 114–181; BP diastolic 69–101
[~2018-07-26 06:00] MED LIST changes: +HYDR-3164 PO; -HYDROmorphone 2 MG/ML VIAL IV PRN; -IV RINGERS,LACTATED 1000ML 1,000 ML IV SCH; -LIDOCAINE 1% PF 2 ML VIAL. ID PRN; -MORPHINE SULFATE 2 MG/ML VIAL. IV PRN; -ONDANSETRON PF 4 MG/2 ML VIAL. IV PRN; -PROCHLORPERAZINE 10 MG/2 ML VIAL. IV PRN; -fentaNYL PF VIAL 100 MCG/2 ML VIAL IV PRN
[2018-07-26 06:38] LABS: BASO # 0.1 x10^3/uL (0.0-0.2); BASO % 1 % (0-3); EOS # 0.4 x10^3/uL (0.0-0.7); EOS % 5 % (0-3); HEMATOCRIT 45.5 % (39.0-53.0); HEMOGLOBIN 15.7 g/dL (13.0-17.5); LYMPH # 1.9 x10^3/uL (1.0-4.8); LYMPH % 24 % (24-48); MEAN CORPUSCULAR HEMOGLOBIN 29 pg (25-35); MEAN CORPUSCULAR HGB CONC 35 g/dL (31-37); MEAN CORPUSCULAR VOLUME 85 fL (79-100); MONO # 0.6 x10^3/uL (0.0-1.1); MONO % 8 % (0-9); NEUT % 64 % (31-73); PLATELET COUNT 203 x10^3/uL (140-400); RED BLOOD COUNT 5.37 x10^6/uL (4.30-5.70); RED CELL DISTRIBUTION WIDTH 13.6 % (11.5-14.5); WHITE BLOOD COUNT 7.9 x10^3/uL (4.0-11.0)
[2018-07-26 06:57] LABS: CALCIUM 10.3 mg/dL (8.5-10.1); CREATININE 1.6 mg/dL (0.7-1.3); GFR 43.5; POTASSIUM 4.5 mmol/L (3.5-5.1)
[2018-07-26] MEDS ORDERED: IPRATRPIUM/ALBUTEROL 0.5/2.5MG 3 ML NEBU. NEB ONE (07:00)
[2018-07-26 07:02] LABS: ALBUMIN 3.1 g/dL (3.4-5.0); DIRECT BILIRUBIN 0.2 mg/dL (0.0-0.2); TOTAL BILIRUBIN 0.5 mg/dL (0.2-1.0); TOTAL PROTEIN 7.3 g/dL (6.4-8.2)
--- NOTE | 2018-07-26 07:05 | EKG ---
[facility] [address] [place] [address] Test Date: 2018-07-26 Test Time: 06:11:31 Pat Name: LEONIE MACDONALD Department: Room: Gender: M Brass Chaser: : 1950 Requested By: MELODY ROMERO Order Number: [id number] Reading MD: David Brito Measurements Intervals [place] Rate: 69 P: 36 AL: 158 QRS: -11 QRSD: 88 T: 60 QT: 364 QTc: 391 Interpretive Statements SINUS RHYTHM LEFTWARD AXIS T ABNORMALITY IN ANTEROLATERAL LEADS ABNORMAL ECG Electronically Signed On 08-22-2018 13:18:53 CDT by David Brito
[2018-07-26] MEDS ORDERED: CONTRAST GIVEN. MC PRN (07:15)
[2018-07-26] MEDS ORDERED: IOHEXOL 350 MG/ML 100 ML VIAL. IV ONE (07:15)
[2018-07-26] MEDS ORDERED: IV NORMAL SALINE 500ML BAG 500 ML IV ONE (07:15)
--- NOTE | 2018-07-26 07:27 | PHYS DOC ---
Past Medical History Past Medical History: Hypertension, Other Additional Past Medical Histor: PE, BROKEN RIBS, CKD Past Surgical History: TURP, Other Additional Past Surgical Histo: Hernia repair, bladder stone removal Alcohol Use: Rarely Drug Use: None Adult General Chief Complaint Chief Complaint: SHORTNESS OF BREATH HPI HPI 68-year-old male presenting to the emergency department today with dyspnea on exertion over the past 2 weeks. He reports shortness of breath with stairs which improved with rest. He also had right thigh pain a few weeks prior to this. He has a history of pulmonary embolism. He denies chest pain at this time. Duration intermittent. Review of systems is negative for abdominal pain nausea vomiting fevers chills diaphoresis. All other review of systems is negative. All other review of systems is negative unless otherwise noted in history of present illness. ED course: 68-year-old male presenting the emergency department today with dyspnea on exertion. On arrival EKG obtained and reviewed by myself shows sinus rhythm with a regular rate. ST segments are congruent. Mild T-wave abnormalities in lead V4 and V5. Nonspecific. Compared to previous on February [id number]. Similar appearance of T waves. No changes. Vital signs reviewed. Afebrile. Normal heart rate. Saturations within normal limits. Blood pressure mildly elevated. CT angiogram shows pulmonary embolism. CBC unremarkable. Chemistry panel shows elevated creatinine improved from previous in February 2018. Troponin is within normal limits. Chest x-ray unremarkable. Heparin bolus and drip was ordered. I spoke with Dr. Hilton who accepts patient for admission. We will place the patient in the intensive care unit. Pulmonary consultation was placed in the computer. Basic bridge orders placed. Review of Systems Review of Systems SEE ABOVE. Current Medications Current Medications Current Medications Medications (Trade) Dose Ordered Sig/Katty Start Time Stop Time Status Last Admin Dose Admin Albuterol/ Ipratropium (Duoneb) 3 ml 1X ONCE 07/26/18 07:00 07/26/18 07:01 DC 07/26/18 06:55 3 ML Heparin Sodium (Porcine) (Heparin Sodium) 8,150 unit 1X ONCE 07/26/18 07:45 07/26/18 07:46 UNV Heparin Sodium/ Dextrose 500 ml @ 0 mls/hr CONT PRN 07/26/18 07:45 UNV Info (CONTRAST GIVEN -- Rx MONITORING) 1 each PRN DAILY PRN 07/26/18 07:15 07/28/18 07:14 Iohexol (Omnipaque 350 Mg/ml) 100 ml 1X ONCE 07/26/18 07:15 07/26/18 07:16 DC 07/26/18 07:31 100 ML Sodium Chloride 500 ml @ 500 mls/hr 1X ONCE 07/26/18 07:15 07/26/18 08:14 Allergies Allergies Allergies Coded Allergies Type Severity Reaction Last Updated Verified No Known Medication Allergies Allergy Unknown 04/04/18 Yes Physical Exam Physical Exam SEE ABOVE Constitutional: Well developed, well nourished, no acute distress, non-toxic a ppearance. [] HENT: Normocephalic, atraumatic, bilateral external ears normal, oropharynx moist, no oral exudates, nose normal. [] Eyes: PERRLA, EOMI, conjunctiva normal, no discharge. [] Neck: Normal range of motion, no tenderness, supple, no stridor. Cardiovascular:Heart rate regular rhythm, no murmur [] Lungs & Thorax: wheezing bilaterally with prolong expiratory phase. Abdomen: Bowel sounds normal, soft, no tenderness, no masses, no pulsatile masses. [] Skin: Warm, dry, no erythema, no rash. [] Back: No tenderness, no CVA tenderness. [] Extremities: No tenderness, no cyanosis, no clubbing, ROM intact, no edema. [] Neurologic: Alert and oriented X 3, normal motor function, normal sensory function, no focal deficits noted. [] Psychologic: Affect normal, judgement normal, mood normal. Current Patient Data Vital Signs Vital Signs Date Time Temp Pulse Resp B/P (MAP) Pulse Ox O2 Delivery O2 Flow Rate FiO2 07/26/18 06:57 97 07/26/18 06:20 98.2 66 16 158/97 (117) Room Air 98.2 Lab Values Laboratory Tests Test 07/26/18 06:27 White Blood Count 7.9 x10^3/uL (4.0-11.0) Red Blood Count 5.37 x10^6/uL (4.30-5.70) Hemoglobin 15.7 g/dL (13.0-17.5) Hematocrit 45.5 % (39.0-53.0) Mean Corpuscular Volume 85 fL (79-100) Mean Corpuscular Hemoglobin 29 pg (25-35) Mean Corpuscular Hemoglobin Concent 35 g/dL (31-37) Red Cell Distribution Width 13.6 % (11.5-14.5) Platelet Count 203 x10^3/uL (140-400) Neutrophils (%) (Auto) 64 % (31-73) Lymphocytes (%) (Auto) 24 % (24-48) Monocytes (%) (Auto) 8 % (0-9) Eosinophils (%) (Auto) 5 % (0-3) H Basophils (%) (Auto) 1 % (0-3) Neutrophils # (Auto) 5.0 x10^3uL (1.8-7.7) Lymphocytes # (Auto) 1.9 x10^3/uL (1.0-4.8) Monocytes # (Auto) 0.6 x10^3/uL (0.0-1.1) Eosinophils # (Auto) 0.4 x10^3/uL (0.0-0.7) Basophils # (Auto) 0.1 x10^3/uL (0.0-0.2) Sodium Level 139 mmol/L (136-145) Potassium Level 4.5 mmol/L (3.5-5.1) Chloride Level 106 mmol/L (98-107) Carbon Dioxide Level 23 mmol/L (21-32) Anion Gap 10 (6-14) Blood Urea Nitrogen 25 mg/dL (8-26) Creatinine 1.6 mg/dL (0.7-1.3) H Estimated GFR (Cockcroft-Gault) 43.5 Glucose Level 118 mg/dL (70-99) H Calcium Level 10.3 mg/dL (8.5-10.1) H Total Bilirubin 0.5 mg/dL (0.2-1.0) Direct Bilirubin 0.2 mg/dL (0.0-0.2) Aspartate Amino Transferase (AST) 24 U/L (15-37) Alanine Aminotransferase (ALT) 31 U/L (16-63) Alkaline Phosphatase 127 U/L (46-116) H Troponin I Quantitative < 0.017 ng/mL (0.000-0.055) HR-Emq-M-Type Natriuretic Peptide 103 pg/mL (0-124) Total Protein 7.3 g/dL (6.4-8.2) Albumin 3.1 g/dL (3.4-5.0) L Lipase 146 U/L (73-393) Laboratory Tests 07/26/18 06:27 Laboratory Tests 07/26/18 06:27 EKG EKG [] Radiology/Procedures Radiology/Procedures [] Course & Med Decision Making Course & Med Decision Making Pertinent Labs and Imaging studies reviewed. (See chart for details) [] Dragon Disclaimer Dragon Disclaimer This electronic medical record was generated, in whole or in part, using a voice recognition dictation system. Departure Departure Impression: Primary Impression: Dyspnea Additional Impressions: Pulmonary embolism DVT (deep venous thrombosis) Disposition: ADMITTED INPATIENT Admitting Physician: Judy Hilton Condition: STABLE Referrals: UNKNOWN PCP NAME (PCP) Problem Qualifiers MELODY ROMERO MD July 26, 2018 07:27
[2018-07-26] MEDS ORDERED: HEPARIN for IV BOLUS 10,000 UNIT/10 ML VIAL. IV ONE (07:45)
--- NOTE | 2018-07-26 07:48 | RAD ---
CTA of the chest with contrast, 07/26/2018: HISTORY: Chest pain, previous pulmonary emboli Multidetector CT imaging was performed following an IV bolus injection of iodinated contrast material. Multiplanar reconstructions were produced including coronal and sagittal MIP images. The main pulmonary artery is unremarkable. There are large filling defects in the lateral aspects of both the right and left main pulmonary arteries extending into lobar and segmental branches bilaterally. The appearance is that of a combination of occlusive and nonocclusive pulmonary emboli. All 5 lobes are involved. These emboli were not evident on the previous study of 04/25/2013. The thoracic aorta is unremarkable. Small mediastinal lymph nodes are evident without pathologic enlargement. There are several mild streaky parenchymal opacities in the periphery of both lungs, probably predominantly due to scarring and/or atelectasis. A calcified granuloma is present in the left lower chest. No pleural fluid is evident. IMPRESSION: Extensive bilateral pulmonary emboli. Note: The findings were called to personnel the [facility] ER at 7:45 AM on 07/26/2018. PQRS Compliance Statement: One or more of the following individualized dose reduction techniques were utilized for this examination: 1. Automated exposure control 2. Adjustment of the mA and/or kV according to patient size 3. Use of iterative reconstruction technique Electronically signed by: Shiva Spence MD (07/26/2018 7:45 AM) [facility]
--- NOTE | 2018-07-26 07:50 | RAD ---
Portable chest, 07/26/2018: HISTORY: Shortness of breath The heart size and pulmonary vascularity are normal. There is minimal linear scarring or atelectasis in both lungs. No pulmonary consolidation is seen. There is no evidence of pleural fluid. IMPRESSION: Minimal bilateral linear scarring or atelectasis. Electronically signed by: Shiva Spence MD (07/26/2018 7:47 AM) [facility]
--- NOTE | 2018-07-26 08:15 | RAD ---
Bilateral lower extremity venous ultrasound, 07/26/2018: History: Leg pain, swelling, PE Duplex evaluation of the deep veins in the lower extremities was performed including grayscale, color-flow and spectral Doppler analysis. On the right, there is a nonocclusive filling defect in the common femoral artery compatible with thrombus. There is occlusive thrombus in the femoral vein in the upper and mid thigh. The popliteal vein is widely patent. The deep veins in the right lower leg could not be visualized. On the left, the common femoral, superficial femoral and popliteal veins are widely patent. The calf veins on the left could not be visualized. IMPRESSION: 1. Deep vein thrombosis in the right common femoral and superficial femoral veins. 2. No evidence of deep vein thrombosis in the left lower extremity from the level of the groin down through the popliteal fossa. 3. Nonvisualization of the calf veins bilaterally. Electronically signed by: Shiva Spence MD (07/26/2018 8:12 AM) [facility]
--- NOTE | 2018-07-26 08:34 | PDOC1 ---
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 No bleeding from it, but was inconvenient for him for INR checks frequently. Few days ago right groin pain, he did have history of DVT on that light right leg. And may be 1 or 2 days ago he noticed gasping for air, SOA, no presyncopal symptoms. Went to the ER. Extensive bilateral PE on CT. Ultrasound of the leg showed maybe the residual right leg clot. IR consulted, so far no plans of or no indications for IVC filter. Patient agreeable to ICU, heparin drip. He would rather prefer the novel OAC for convenience. 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 Nonsmoker, nondrinker. First episode PE was also provoked by driving long distances. No significant surgical history aside from urologic surgery by Dr. Khan for kidney stones yrs back Family history hypertension, dyslipidemia NOT Hypotensive, slightly tachycardic, no hypoxia so far Past Medical History Cardiovascular: HTN Pulmonary: Other (PE) CENTRAL NERVOUS SYSTEM: Other GI: GERD Heme/Onc: No pertinent hx Hepatobiliary: No pertinent hx Psych: No pertinent hx Musculoskeletal: Osteoarthritis Rheumatologic: No pertinent hx Infectious disease: No pertinent hx Renal/: Benign prostatic enlarg., Other Endocrine: No pertinent hx Past Surgical History Past Surgical History: Other (urologic proc for kidney stones) Family History Family History: No Significant, High Cholestrol Social History Smoke: No ALCOHOL: occassional Drugs: None Current Problem List Problem List Problems Medical Problems: (1) DVT (deep venous thrombosis) Status: Acute (2) Dyspnea Status: Acute (3) Pulmonary embolism Status: Acute Current Medications Current Medications Current Medications Albuterol/ Ipratropium (Duoneb) 3 ml 1X ONCE NEB Last administered on 07/26/18at 06:55; Start 07/26/18 at 07:00; Stop 07/26/18 at 07:01; Status DC Iohexol (Omnipaque 350 Mg/ml) 100 ml 1X ONCE IV Last administered on 07/26/18at 07:31; Start 07/26/18 at 07:15; Stop 07/26/18 at 07:16; Status DC Info (CONTRAST GIVEN -- Rx MONITORING) 1 each PRN DAILY PRN MC SEE COMMENTS; Start 07/26/18 at 07:15; Stop 07/28/18 at 07:14 Sodium Chloride 500 ml @ 500 mls/hr 1X ONCE IV ; Start 07/26/18 at 07:15; Stop 07/26/18 at 08:14; Status DC Heparin Sodium (Porcine) (Heparin Sodium) 8,150 unit 1X ONCE IV ; Start 07/26/18 at 07:45; Stop 07/26/18 at 07:51; Status DC Heparin Sodium/ Dextrose 500 ml @ 0 mls/hr CONT PRN IV SEE I/O RECORD; Start 07/26/18 at 07:45 Active Scripts Active [place] 5-325 Tablet (Acetaminophen/Hydrocodone Bitart) 1 Each Tablet 1 Tab PO PRN Q6HRS PRN 7 Days Reported Tylenol Extra Strength (Acetaminophen) 500 Mg Tablet 500 Mg PO PRN PRN Allergies Allergies: Coded Allergies: No Known Medication Allergies (Verified Allergy, Unknown, 04/04/18) ROS Review of System As per history of present illness, the rest of ROS 14 point negative Physical Exam General: Alert, Oriented X3, Cooperative, No acute distress HEENT: Atraumatic, PERRLA, EOMI Lungs: Clear to auscultation, Normal air movement Heart: S1S2, no thrills, no rubs, no gallops, no murmurs, other (sinus tachycardia) Cardiovascular: S1, S2 Abdomen: Normal bowel sounds, Soft, No tenderness, No hepatosplenomegaly, No masses Male Genitals Exam: normal genitalia, normal prostate Rectal Exam: not examined PELVIC: Nml ext genitalia Extremities: No clubbing, No cyanosis, No edema, Normal pulses, No tenderness/swelling, Other (NO tenderness or swelling on either legs) Skin: No rashes, No breakdown, No significant lesion Neuro: Normal gait, Normal speech, Strength at 5/5 X4 ext, Normal tone, Sensation intact, Cranial nerves 3-12 NL, Reflexes 2+ Psych/Mental Status: Mental status NL, Mood NL Vitals Vitals Vital Signs Date Time Temp Pulse Resp B/P (MAP) Pulse Ox O2 Delivery O2 Flow Rate FiO2 07/26/18 06:57 97 07/26/18 06:20 98.2 66 16 158/97 (117) Room Air 98.2 Labs Labs Laboratory Tests Test 07/26/18 06:27 White Blood Count 7.9 x10^3/uL (4.0-11.0) Red Blood Count 5.37 x10^6/uL (4.30-5.70) Hemoglobin 15.7 g/dL (13.0-17.5) Hematocrit 45.5 % (39.0-53.0) Mean Corpuscular Volume 85 fL (79-100) Mean Corpuscular Hemoglobin 29 pg (25-35) Mean Corpuscular Hemoglobin Concent 35 g/dL (31-37) Red Cell Distribution Width 13.6 % (11.5-14.5) Platelet Count 203 x10^3/uL (140-400) Neutrophils (%) (Auto) 64 % (31-73) Lymphocytes (%) (Auto) 24 % (24-48) Monocytes (%) (Auto) 8 % (0-9) Eosinophils (%) (Auto) 5 % (0-3) Basophils (%) (Auto) 1 % (0-3) Neutrophils # (Auto) 5.0 x10^3uL (1.8-7.7) Lymphocytes # (Auto) 1.9 x10^3/uL (1.0-4.8) Monocytes # (Auto) 0.6 x10^3/uL (0.0-1.1) Eosinophils # (Auto) 0.4 x10^3/uL (0.0-0.7) Basophils # (Auto) 0.1 x10^3/uL (0.0-0.2) Sodium Level 139 mmol/L (136-145) Potassium Level 4.5 mmol/L (3.5-5.1) Chloride Level 106 mmol/L (98-107) Carbon Dioxide Level 23 mmol/L (21-32) Anion Gap 10 (6-14) Blood Urea Nitrogen 25 mg/dL (8-26) Creatinine 1.6 mg/dL (0.7-1.3) Estimated GFR (Cockcroft-Gault) 43.5 Glucose Level 118 mg/dL (70-99) Calcium Level 10.3 mg/dL (8.5-10.1) Total Bilirubin 0.5 mg/dL (0.2-1.0) Direct Bilirubin 0.2 mg/dL (0.0-0.2) Aspartate Amino Transf (AST/SGOT) 24 U/L (15-37) Alanine Aminotransferase (ALT/SGPT) 31 U/L (16-63) Alkaline Phosphatase 127 U/L (46-116) Troponin I Quantitative < 0.017 ng/mL (0.000-0.055) VH-Klm-B-Type Natriuretic Peptide 103 pg/mL (0-124) Total Protein 7.3 g/dL (6.4-8.2) Albumin 3.1 g/dL (3.4-5.0) Lipase 146 U/L (73-393) Laboratory Tests Test 07/26/18 06:27 White Blood Count 7.9 x10^3/uL (4.0-11.0) Red Blood Count 5.37 x10^6/uL (4.30-5.70) Hemoglobin 15.7 g/dL (13.0-17.5) Hematocrit 45.5 % (39.0-53.0) Mean Corpuscular Volume 85 fL (79-100) Mean Corpuscular Hemoglobin 29 pg (25-35) Mean Corpuscular Hemoglobin Concent 35 g/dL (31-37) Red Cell Distribution Width 13.6 % (11.5-14.5) Platelet Count 203 x10^3/uL (140-400) Neutrophils (%) (Auto) 64 % (31-73) Lymphocytes (%) (Auto) 24 % (24-48) Monocytes (%) (Auto) 8 % (0-9) Eosinophils (%) (Auto) 5 % (0-3) Basophils (%) (Auto) 1 % (0-3) Neutrophils # (Auto) 5.0 x10^3uL (1.8-7.7) Lymphocytes # (Auto) 1.9 x10^3/uL (1.0-4.8) Monocytes # (Auto) 0.6 x10^3/uL (0.0-1.1) Eosinophils # (Auto) 0.4 x10^3/uL (0.0-0.7) Basophils # (Auto) 0.1 x10^3/uL (0.0-0.2) Sodium Level 139 mmol/L (136-145) Potassium Level 4.5 mmol/L (3.5-5.1) Chloride Level 106 mmol/L (98-107) Carbon Dioxide Level 23 mmol/L (21-32) Anion Gap 10 (6-14) Blood Urea Nitrogen 25 mg/dL (8-26) Creatinine 1.6 mg/dL (0.7-1.3) Estimated GFR (Cockcroft-Gault) 43.5 Glucose Level 118 mg/dL (70-99) Calcium Level 10.3 mg/dL (8.5-10.1) Total Bilirubin 0.5 mg/dL (0.2-1.0) Direct Bilirubin 0.2 mg/dL (0.0-0.2) Aspartate Amino Transf (AST/SGOT) 24 U/L (15-37) Alanine Aminotransferase (ALT/SGPT) 31 U/L (16-63) Alkaline Phosphatase 127 U/L (46-116) Troponin I Quantitative < 0.017 ng/mL (0.000-0.055) LK-Aei-N-Type Natriuretic Peptide 103 pg/mL (0-124) Total Protein 7.3 g/dL (6.4-8.2) Albumin 3.1 g/dL (3.4-5.0) Lipase 146 U/L (73-393) VTE Prophylaxis Ordered VTE Prophylaxis Devices: Yes VTE Pharmacological Prophylaxi: Yes Assessment/Plan Assessment/Plan 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 Hill cc 30 Seen in ER FULL CODE CARMEL VIVAR MD July 26, 2018 08:34
[2018-07-26] MEDS: HEPARIN 25,000UTS/500ML PREMIX 500 ML IV PRN ×2 (08:40→23:33)
[2018-07-26] MEDS ORDERED: HYDROcodone/APAP 5/325MG 1 TAB TABLET PO PRN (08:45)
[2018-07-26] MEDS ORDERED: LABETALOL 20 MG/4 ML DISP.SYRIN. IVP PRN (08:45)
[2018-07-26] MEDS ORDERED: diphenhydrAMINE HCL 25 MG CAPSULE PO PRN (08:45)
[2018-07-26] MEDS ORDERED: ACETAMINOPHEN 500 MG TABLET PO PRN (08:45)
[2018-07-26] MEDS ORDERED: ONDANSETRON PF 4 MG/2 ML VIAL. IV PRN (08:45)
[2018-07-26] MEDS ORDERED: ALBUTEROL SULFATE 2.5 MG/3 ML NEBU. NEB PRN (08:45)
[2018-07-26] MEDS ORDERED: MAG HYDROX/ALUMINUM HYD/SIMETH 30 ML ORAL.SUSP PO PRN (08:45)
[2018-07-26] MEDS ORDERED: ACETAMINOPHEN/CODEINE 300/30MG TABLET. PO PRN (08:45)
[2018-07-26] MEDS ORDERED: ACET500T68 PO (10:50)
--- NOTE | 2018-07-26 14:27 | CARD ---
MR#: [id number] Date of Study: 07/26/2018 Ordering Physician: CARMEL VIVAR, Referring Physician: CARMEL VIVAR, Tech: Rowena Mohan APPROVED REPORT EXAM: Two-dimensional and M-mode echocardiogram with Doppler and color Doppler. Other Information Quality : GoodHR: 56bpm INDICATION Pulmonary Embolism RISK FACTORS Hypertension 2D DIMENSIONS RVDd2.8 (2.9-3.5cm)Left Atrium(2D)3.7 (1.6-4.0cm) IVSd0.9 (0.7-1.1cm)Aortic Root(2D)3.2 (2.0-3.7cm) LVDd5.1 (3.9-5.9cm)LVOT Diameter2.0 (1.8-2.4cm) PWd1.2 (0.7-1.1cm)LVDs3.3 (2.5-4.0cm) FS (%) 36.2 %SV82.2 ml LVEF(%)65.6 (>50%) Aortic Valve AoV Peak César.139.4cm/sAoV VTI29.5cm AO Peak GR.7.8mmHgLVOT VTI 26.27cm AO Mean GR.5mmHg Mitral Valve MV E Nenvgxzu60.4cm/sMV DECEL [id number] MV A Ksmsfhth24.7cm/sE/A Ratio1.0 TDI Lateral E' P. V7.66cm/sMedial E' P. V7.14cm/s E/Lateral E'9.8E/Medial E'10.6 Tricuspid Valve TR P. Bjnjdeht589mi/sRAP [id number] TR Peak Gr.[id number] Pulmonary Vein S1 Foopxscb18.5cm/sS2 Hvpgiups78.57cm/s D2 Ctraavon96.6cm/sPVa [id number] LEFT VENTRICLE The left ventricle is normal size. There is borderline to mild concentric left ventricular hypertroph y. The left ventricular systolic function is normal. The Ejection Fraction is 55-60%. There is normal LV segmental wall motion. RIGHT VENTRICLE The right ventricle is mildly dilated. There is normal right ventricular wall thickness. Systolic fun ction is borderline reduced. ATRIA The left atrium size is normal. The right atrium is borderline dilated. The interatrial septum is int act with no evidence for an atrial septal defect or patent foramen ovale as noted on 2-D or Doppler i maging. AORTIC VALVE The aortic valve is normal in structure and function. Doppler and Color Flow revealed no significant aortic regurgitation. There is no significant aortic valvular stenosis. MITRAL VALVE The mitral valve is normal in structure and function. There is no evidence of mitral valve prolapse. There is no mitral valve stenosis. Doppler and Color Flow revealed no mitral valve regurgitation note d. TRICUSPID VALVE The tricuspid valve is normal in structure and function. Doppler and Color Flow revealed trace tricus pid regurgitation with an estimated PAP of 34 mmHg. There is no tricuspid valve stenosis. PULMONIC VALVE The pulmonic valve is not well visualized. Doppler and Color Flow revealed no pulmonic valvular regur gitation. GREAT VESSELS The aortic root is normal in size. The IVC is normal in size and collapses >50% with inspiration. PERICARDIAL EFFUSION There is no evidence of significant pericardial effusion. Critical Notification Critical Value: No <Conclusion> The left ventricular systolic function is normal. The Ejection Fraction is 55-60%. There is normal LV segmental wall motion. Trace tricuspid regurgitation with an estimated PAP of 34 mmHg. There is no evidence of significant pericardial effusion. Signed by : David Brito, Electronically Approved : 07/26/2018 14:26:33
--- NOTE | 2018-07-26 14:39 | PDOC ---
PULMONARY PROGRESS NOTES Vitals Vital Signs Date Time Temp Pulse Resp B/P (MAP) Pulse Ox O2 Delivery O2 Flow Rate FiO2 07/26/18 13:00 94 20 96 Room Air 07/26/18 11:00 98.3 98.3 General: Alert, No acute distress Lungs: Clear Cardiovascular: S1, S2 Abdomen: Soft, Non-tender Extremities: No Edema Labs Laboratory Tests Test 07/26/18 06:27 White Blood Count 7.9 x10^3/uL (4.0-11.0) Red Blood Count 5.37 x10^6/uL (4.30-5.70) Hemoglobin 15.7 g/dL (13.0-17.5) Hematocrit 45.5 % (39.0-53.0) Mean Corpuscular Volume 85 fL (79-100) Mean Corpuscular Hemoglobin 29 pg (25-35) Mean Corpuscular Hemoglobin Concent 35 g/dL (31-37) Red Cell Distribution Width 13.6 % (11.5-14.5) Platelet Count 203 x10^3/uL (140-400) Neutrophils (%) (Auto) 64 % (31-73) Lymphocytes (%) (Auto) 24 % (24-48) Monocytes (%) (Auto) 8 % (0-9) Eosinophils (%) (Auto) 5 % (0-3) Basophils (%) (Auto) 1 % (0-3) Neutrophils # (Auto) 5.0 x10^3uL (1.8-7.7) Lymphocytes # (Auto) 1.9 x10^3/uL (1.0-4.8) Monocytes # (Auto) 0.6 x10^3/uL (0.0-1.1) Eosinophils # (Auto) 0.4 x10^3/uL (0.0-0.7) Basophils # (Auto) 0.1 x10^3/uL (0.0-0.2) Sodium Level 139 mmol/L (136-145) Potassium Level 4.5 mmol/L (3.5-5.1) Chloride Level 106 mmol/L (98-107) Carbon Dioxide Level 23 mmol/L (21-32) Anion Gap 10 (6-14) Blood Urea Nitrogen 25 mg/dL (8-26) Creatinine 1.6 mg/dL (0.7-1.3) Estimated GFR (Cockcroft-Gault) 43.5 Glucose Level 118 mg/dL (70-99) Calcium Level 10.3 mg/dL (8.5-10.1) Total Bilirubin 0.5 mg/dL (0.2-1.0) Direct Bilirubin 0.2 mg/dL (0.0-0.2) Aspartate Amino Transf (AST/SGOT) 24 U/L (15-37) Alanine Aminotransferase (ALT/SGPT) 31 U/L (16-63) Alkaline Phosphatase 127 U/L (46-116) Troponin I Quantitative < 0.017 ng/mL (0.000-0.055) FP-Bdj-O-Type Natriuretic Peptide 103 pg/mL (0-124) Total Protein 7.3 g/dL (6.4-8.2) Albumin 3.1 g/dL (3.4-5.0) Lipase 146 U/L (73-393) Laboratory Tests Test 07/26/18 06:27 White Blood Count 7.9 x10^3/uL (4.0-11.0) Red Blood Count 5.37 x10^6/uL (4.30-5.70) Hemoglobin 15.7 g/dL (13.0-17.5) Hematocrit 45.5 % (39.0-53.0) Mean Corpuscular Volume 85 fL (79-100) Mean Corpuscular Hemoglobin 29 pg (25-35) Mean Corpuscular Hemoglobin Concent 35 g/dL (31-37) Red Cell Distribution Width 13.6 % (11.5-14.5) Platelet Count 203 x10^3/uL (140-400) Neutrophils (%) (Auto) 64 % (31-73) Lymphocytes (%) (Auto) 24 % (24-48) Monocytes (%) (Auto) 8 % (0-9) Eosinophils (%) (Auto) 5 % (0-3) Basophils (%) (Auto) 1 % (0-3) Neutrophils # (Auto) 5.0 x10^3uL (1.8-7.7) Lymphocytes # (Auto) 1.9 x10^3/uL (1.0-4.8) Monocytes # (Auto) 0.6 x10^3/uL (0.0-1.1) Eosinophils # (Auto) 0.4 x10^3/uL (0.0-0.7) Basophils # (Auto) 0.1 x10^3/uL (0.0-0.2) Sodium Level 139 mmol/L (136-145) Potassium Level 4.5 mmol/L (3.5-5.1) Chloride Level 106 mmol/L (98-107) Carbon Dioxide Level 23 mmol/L (21-32) Anion Gap 10 (6-14) Blood Urea Nitrogen 25 mg/dL (8-26) Creatinine 1.6 mg/dL (0.7-1.3) Estimated GFR (Cockcroft-Gault) 43.5 Glucose Level 118 mg/dL (70-99) Calcium Level 10.3 mg/dL (8.5-10.1) Total Bilirubin 0.5 mg/dL (0.2-1.0) Direct Bilirubin 0.2 mg/dL (0.0-0.2) Aspartate Amino Transf (AST/SGOT) 24 U/L (15-37) Alanine Aminotransferase (ALT/SGPT) 31 U/L (16-63) Alkaline Phosphatase 127 U/L (46-116) Troponin I Quantitative < 0.017 ng/mL (0.000-0.055) HF-Aax-Q-Type Natriuretic Peptide 103 pg/mL (0-124) Total Protein 7.3 g/dL (6.4-8.2) Albumin 3.1 g/dL (3.4-5.0) Lipase 146 U/L (73-393) Medications Active Scripts Medications Dose Route/Sig Max Daily Dose Days Date Category Acetaminophen 500 Mg Tablet 1 Tab PO Q6HRS 07/26/18 Reported Impression . NOTE DICTATED PE HOME ON ELIQUIS CONTINUE THE SAME THANKS RYAN MATIAS MD July 26, 2018 14:39
[2018-07-26] MEDS: IV NORMAL SALINE 1000ML BAG 1,000 ML IV SCH ×2 (20:15→20:20)
[2018-07-27] VITALS (11 sets, daily range): BP systolic 101–179; BP diastolic 58–93
[2018-07-27] MEDS: IV NORMAL SALINE 1000ML BAG 1,000 ML IV SCH (06:15)
--- NOTE | 2018-07-27 06:24 | CONS ---
DATE OF CONSULTATION: 07/26/2018 ATTENDING PHYSICIAN: Judy Hilton M.D. REASON FOR CONSULTATION: The patient is seen in Pulmonary consultation at the request of Dr. Hilton for PE. 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 The patient took Coumadin for 6 months. Over the last several days, he has had increasing shortness of breath. Yesterday, he felt like he was almost passing out. He drove himself with difficulty breathing, unable to take any deep breath. He had a CT angiogram, I personally reviewed and he had bilateral pulmonary embolism, the clot burden, I would say, is quite large. The patient remained hemodynamically stable. Not a candidate for TPA. He also had a venous Doppler of the lower extremities, which revealed thrombosis of the right common femoral and superficial femoral veins. There was no evidence in the left. No thrombosis on the left. 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 FAMILY HISTORY: No family history of thrombophilia. SOCIAL HISTORY: Socially, he is a nonsmoker. REVIEW OF SYSTEMS: CONSTITUTIONAL: No fever or chills. EYES: No change in visual acuity. HEENT: No nasal congestion or sore throat. PULMONARY: As indicated above. CARDIOVASCULAR: No chest pain or pressure. GASTROINTESTINAL: No nausea, vomiting or diarrhea. GENITOURINARY: No dysuria or frequency. MUSCULOSKELETAL: No localized muscle aches or joint pains. SKIN: No new skin rashes. NEUROLOGICAL: No headaches, diplopia or blurred vision. ALLERGIES: No known drug allergies. PHYSICAL EXAMINATION: VITAL SIGNS: The patient is actually hypertensive at one point. Currently on room air saturation 96%. HEENT: Eyes, the sclerae were nonicteric. NECK: Jugular venous distention was not elevated. No lymphadenopathy. CHEST: Full expansion. LUNGS: Adequate airway flow with no wheezes. CARDIOVASCULAR: Regular rate and rhythm with S1 and S2. No S3. ABDOMEN: Soft, nontender and nondistended. EXTREMITIES: No clubbing, cyanosis or edema. LABORATORY DATA: White count was normal. Hemoglobin and hematocrit were normal. Electrolytes were noted. Creatinine was 1.6 and albumin was 3.1. RADIOLOGICAL DATA: Chest x-ray, CT angiogram was reviewed. Venous Dopplers report noted. IMPRESSION: 1. Bilateral pulmonary embolism. 2. Pleurisy secondary to above. 3. Progressive dyspnea secondary to bilateral pulmonary embolism. 4. Hypertension, not controlled. 5. Renal insufficiency. 6. Hypercalcemia. PLAN: 1. Recommend continue IV heparin. 2. Home with Eliquis. 3. Echocardiogram pending. 4. No need for IVC filter. 5. The patient's presentation did not warrant TPA. I do appreciate the privilege in sharing in the patient's care. RYAN MATIAS MD DR: ROSE/joni JOB#: [id number] / [id number]
[2018-07-27 06:38] LABS: BASO # 0.1 x10^3/uL (0.0-0.2); BASO % 1 % (0-3); EOS # 0.3 x10^3/uL (0.0-0.7); EOS % 4 % (0-3); HEMATOCRIT 44.8 % (39.0-53.0); HEMOGLOBIN 14.8 g/dL (13.0-17.5); LYMPH # 1.6 x10^3/uL (1.0-4.8); LYMPH % 25 % (24-48); MEAN CORPUSCULAR HEMOGLOBIN 28 pg (25-35); MEAN CORPUSCULAR HGB CONC 33 g/dL (31-37); MEAN CORPUSCULAR VOLUME 85 fL (79-100); MONO # 0.5 x10^3/uL (0.0-1.1); MONO % 7 % (0-9); NEUT % 62 % (31-73); PLATELET COUNT 200 x10^3/uL (140-400); RED BLOOD COUNT 5.27 x10^6/uL (4.30-5.70); RED CELL DISTRIBUTION WIDTH 13.4 % (11.5-14.5); WHITE BLOOD COUNT 6.3 x10^3/uL (4.0-11.0)
[2018-07-27 06:58] LABS: CALCIUM 9.9 mg/dL (8.5-10.1); CREATININE 1.6 mg/dL (0.7-1.3); GFR 43.5; POTASSIUM 4.5 mmol/L (3.5-5.1)
--- NOTE | 2018-07-27 07:34 | NUR ---
ufh = 0.39 no change needed in heparin gtt.
--- NOTE | 2018-07-27 09:16 | PDOC ---
PULMONARY PROGRESS NOTES Subjective PT NOT MORE SOA Vitals Vital Signs Date Time Temp Pulse Resp B/P (MAP) Pulse Ox O2 Delivery O2 Flow Rate FiO2 07/27/18 07:00 53 20 143/86 (105) 98 Room Air 07/27/18 05:00 98.6 98.6 ROS: No Nausea, No Chest Pain, No Abdominal Pain, No Increase Cough General: Alert, No acute distress Lungs: Clear Cardiovascular: S1, S2 Abdomen: Soft, Non-tender Extremities: No Edema Labs Laboratory Tests Test 07/26/18 06:27 07/26/18 14:29 07/26/18 20:30 07/27/18 06:10 White Blood Count 7.9 x10^3/uL (4.0-11.0) 6.3 x10^3/uL (4.0-11.0) Red Blood Count 5.37 x10^6/uL (4.30-5.70) 5.27 x10^6/uL (4.30-5.70) Hemoglobin 15.7 g/dL (13.0-17.5) 14.8 g/dL (13.0-17.5) Hematocrit 45.5 % (39.0-53.0) 44.8 % (39.0-53.0) Mean Corpuscular Volume 85 fL (79-100) 85 fL (79-100) Mean Corpuscular Hemoglobin 29 pg (25-35) 28 pg (25-35) Mean Corpuscular Hemoglobin Concent 35 g/dL (31-37) 33 g/dL (31-37) Red Cell Distribution Width 13.6 % (11.5-14.5) 13.4 % (11.5-14.5) Platelet Count 203 x10^3/uL (140-400) 200 x10^3/uL (140-400) Neutrophils (%) (Auto) 64 % (31-73) 62 % (31-73) Lymphocytes (%) (Auto) 24 % (24-48) 25 % (24-48) Monocytes (%) (Auto) 8 % (0-9) 7 % (0-9) Eosinophils (%) (Auto) 5 % (0-3) 4 % (0-3) Basophils (%) (Auto) 1 % (0-3) 1 % (0-3) Neutrophils # (Auto) 5.0 x10^3uL (1.8-7.7) 4.0 x10^3uL (1.8-7.7) Lymphocytes # (Auto) 1.9 x10^3/uL (1.0-4.8) 1.6 x10^3/uL (1.0-4.8) Monocytes # (Auto) 0.6 x10^3/uL (0.0-1.1) 0.5 x10^3/uL (0.0-1.1) Eosinophils # (Auto) 0.4 x10^3/uL (0.0-0.7) 0.3 x10^3/uL (0.0-0.7) Basophils # (Auto) 0.1 x10^3/uL (0.0-0.2) 0.1 x10^3/uL (0.0-0.2) Sodium Level 139 mmol/L (136-145) 139 mmol/L (136-145) Potassium Level 4.5 mmol/L (3.5-5.1) 4.5 mmol/L (3.5-5.1) Chloride Level 106 mmol/L (98-107) 106 mmol/L (98-107) Carbon Dioxide Level 23 mmol/L (21-32) 24 mmol/L (21-32) Anion Gap 10 (6-14) 9 (6-14) Blood Urea Nitrogen 25 mg/dL (8-26) 21 mg/dL (8-26) Creatinine 1.6 mg/dL (0.7-1.3) 1.6 mg/dL (0.7-1.3) Estimated GFR (Cockcroft-Gault) 43.5 43.5 Glucose Level 118 mg/dL (70-99) 112 mg/dL (70-99) Calcium Level 10.3 mg/dL (8.5-10.1) 9.9 mg/dL (8.5-10.1) Total Bilirubin 0.5 mg/dL (0.2-1.0) Direct Bilirubin 0.2 mg/dL (0.0-0.2) Aspartate Amino Transf (AST/SGOT) 24 U/L (15-37) Alanine Aminotransferase (ALT/SGPT) 31 U/L (16-63) Alkaline Phosphatase 127 U/L (46-116) Troponin I Quantitative < 0.017 ng/mL (0.000-0.055) QH-Vzb-O-Type Natriuretic Peptide 103 pg/mL (0-124) Total Protein 7.3 g/dL (6.4-8.2) Albumin 3.1 g/dL (3.4-5.0) Lipase 146 U/L (73-393) Heparin Anti-Xa Act, Unfractionated 0.58 IU/mL (0.30-0.70) 0.46 IU/mL (0.30-0.70) 0.39 IU/mL (0.30-0.70) Laboratory Tests Test 07/26/18 14:29 07/26/18 20:30 07/27/18 06:10 Heparin Anti-Xa Act, Unfractionated 0.58 IU/mL (0.30-0.70) 0.46 IU/mL (0.30-0.70) 0.39 IU/mL (0.30-0.70) White Blood Count 6.3 x10^3/uL (4.0-11.0) Red Blood Count 5.27 x10^6/uL (4.30-5.70) Hemoglobin 14.8 g/dL (13.0-17.5) Hematocrit 44.8 % (39.0-53.0) Mean Corpuscular Volume 85 fL (79-100) Mean Corpuscular Hemoglobin 28 pg (25-35) Mean Corpuscular Hemoglobin Concent 33 g/dL (31-37) Red Cell Distribution Width 13.4 % (11.5-14.5) Platelet Count 200 x10^3/uL (140-400) Neutrophils (%) (Auto) 62 % (31-73) Lymphocytes (%) (Auto) 25 % (24-48) Monocytes (%) (Auto) 7 % (0-9) Eosinophils (%) (Auto) 4 % (0-3) Basophils (%) (Auto) 1 % (0-3) Neutrophils # (Auto) 4.0 x10^3uL (1.8-7.7) Lymphocytes # (Auto) 1.6 x10^3/uL (1.0-4.8) Monocytes # (Auto) 0.5 x10^3/uL (0.0-1.1) Eosinophils # (Auto) 0.3 x10^3/uL (0.0-0.7) Basophils # (Auto) 0.1 x10^3/uL (0.0-0.2) Sodium Level 139 mmol/L (136-145) Potassium Level 4.5 mmol/L (3.5-5.1) Chloride Level 106 mmol/L (98-107) Carbon Dioxide Level 24 mmol/L (21-32) Anion Gap 9 (6-14) Blood Urea Nitrogen 21 mg/dL (8-26) Creatinine 1.6 mg/dL (0.7-1.3) Estimated GFR (Cockcroft-Gault) 43.5 Glucose Level 112 mg/dL (70-99) Calcium Level 9.9 mg/dL (8.5-10.1) Medications Active Scripts Medications Dose Route/Sig Max Daily Dose Days Date Category Acetaminophen 500 Mg Tablet 1 Tab PO Q6HRS 07/26/18 Reported Impression . IMPRESSION: 1. Bilateral pulmonary embolism. 2. Pleurisy secondary to above. 3. Progressive dyspnea secondary to bilateral pulmonary embolism. 4. Hypertension, not controlled. 5. Renal insufficiency. 6. Hypercalcemia. ECHO <Conclusion> The left ventricular systolic function is normal. The Ejection Fraction is 55-60%. There is normal LV segmental wall motion. Trace tricuspid regurgitation with an estimated PAP of 34 mmHg. There is no evidence of significant pericardial effusion. Plan . D/C HOME ON ELIQUIS REVIEWED THE R/B OF ELIQUIS FOLLOW UP IN OFFICE 6-8 WEKS LIFETIME ANTICOAGULATION RYAN MATIAS MD July 27, 2018 09:16
[2018-07-27] MEDS ORDERED: ANTI-COAG MONITOR BY PHARMACY. MC PRN (09:30)
--- NOTE | 2018-07-27 11:11 | PDOC3 ---
[facility]-Discharge Summary Date of Admission: Date of Admission: July 26, 2018 Date of Discharge: Date of Discharge: July 27, 2018 Admission Diagnosis: Admitting Diagnosis: Pulmonary embolism Discharge Diagnosis: Discharge Diagnosis: Resolving recurrent pulmonary embolism Consults: Consults: Dr. 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 all the way to [place] and thinks maybe he isn't getting enough exercise He presented with shortness of breath and leg pain was noted to have a pulmonary embolus and Since his second embolism were undergoing put him on chronic anticoagulation for life I saw him and examined this morning his heart tones were normal his lungs were clear his abdomen was soft extremities no edema I discussed case with pulmonary in the nurse The nurse called in a couple months supply of Eloquis Undergoing to the discharge in Disposition: Disposition/Orders: D/C to Home Activity: Activity: Resume previous activity Diet: Diet: Regular Medications: Home Meds Reported Medications Acetaminophen (ACETAMINOPHEN) 500 Mg Tablet, 1 TAB PO Q6HRS for pain/headache, #60 TAB 07/26/18 Scheduled Acetaminophen (Acetaminophen), 1 TAB PO Q6HRS, (Reported) Total Time: Total Time: 33 minutes EVIE LUZ III, DO July 27, 2018 11:11
[2018-07-27] MEDS ORDERED: APIX5TAB PO ×2 (11:35→11:36)
--- NOTE | 2018-07-27 13:31 | NUR ---
Discharge teaching provided written and verbal to pt,understanding verbalized. Dismissed to home with all belongings,pt has his car here to drive himself home. Transported to exit per w/c at 1315.
== END 2018-07-27 13:15 | disposition home or self-care (01) | DRG 176 ==
LOC: ER 06:00 → 1 WEST ICU 07:51
PROVIDERS: ADMIT Internal Medicine; ATTEND Internal Medicine
DX: I26.99 Other pulmonary embolism without acute cor pulmonale (principal); I82.511 Chronic embolism and thrombosis of right femoral vein; N18.9 Chronic kidney disease, unspecified; I12.9 Hypertensive chronic kidney disease with stage 1 through stage 4 chronic kidney disease, or unspecified chronic kidney disease; K21.9 Gastro-esophageal reflux disease without esophagitis; M19.90 Unspecified osteoarthritis, unspecified site; E83.52 Hypercalcemia; Z86.711 Personal history of pulmonary embolism; Z87.442 Personal history of urinary calculi; Z79.01 Long term (current) use of anticoagulants; Z86.718 Personal history of other venous thrombosis and embolism; Z82.49 Family history of ischemic heart disease and other diseases of the circulatory system; R09.1 Pleurisy
CPT/HCPCS: 36415; 71045; 71275; 80048; 80076; 83690; 83880; 84484; 85025; 85520; 87641; 93005; 93306; 93970; 94640; 94760; 96361; 96374; J1644; J7030; J7040; J7620; Q9967; 99291-25